=== PATIENT | female | born 1940 | race Caucasian/White ===

== ENCOUNTER 2020-11-13 07:43 | Day surgery (SDC) | payer OTHER, SELFPAY ==
[2020-11-08 15:21] VITALS: BMI 32.5
--- NOTE | 2020-11-10 13:01 | MHC.SHP ---
Pre-Procedural Eval Section A The patient is an INPATIENT: No The History & Physical has been completed within 30 days and I have reviewed it.: Yes Section B Chief Complaint: Cataract Right Eye Allergies: Allergies Allergy/AdvReac Type Severity Reaction Status Date / Time aspirin Allergy Unknown Verified 11/08/20 09:26 bee pollen Allergy Unknown Verified 11/08/20 09:26 beeswax Allergy Unknown Verified 11/08/20 09:26 Chocolate Allergy Unknown Verified 11/08/20 09:26 Penicillins Allergy Unknown Verified 11/08/20 09:26 Plan Diagnosis/Plan: Unchanged I have reviewed the history and physical and performed a pertinent physical examination on my patient. No changes have occurred unless specified.
[2020-11-13 08:44] VITALS: BP 124/48; PULSE 52; RESP 18; TEMP 36.2; O2SAT 93
[2020-11-13] MEDS: Lactated Ringers 500 ML 50 ML IV (08:49)
[2020-11-13] MEDS: Tetracaine HCl/PF 0.5% Oph Sol 4 ML DROPS 1 DROP EYE-RIGHT (08:49)
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
[2020-11-13] MEDS: Tropicamide 1 % Ophth Sol 3 ML BTL 1 DROP EYE-RIGHT ×3 (08:50→09:02)
[2020-11-13] MEDS: Phenylephrine HCL 2.5% Oph SoL 2 ML BOTTLE 1 DROP EYE-RIGHT ×3 (08:52→09:06)
[2020-11-13 09:09] LABS: Glucose, Whole Blood 109 mg/dL (60-115)
--- NOTE | 2020-11-13 09:50 | HO.PNOPHT ---
Ophthalmology Procedure Procedure Date of Service: 11/13/20 Ophthalmology Viscoelastic: Shira Bookert Dual Pack Pro Ophthalmology Lenses: TECDRU [id number] (12) Procedure Notes: PREOPERATIVE DIAGNOSIS: Decreased visual acuity right eye secondary to cataract POSTOPERATIVE DIAGNOSIS: Same PROCEDURE: Right cataract extraction with intraocular lens insertion SURGEON: Dharmesh Mejia M.D. ANESTHESIA: Topical/MAC ESTIMATED BLOOD LOSS: None COMPLICATIONS: None After obtaining informed consent, the patient was brought to the operating room suite and placed in the supine position. After adequate sedation per anesthesia, topical drops of Tetracaine were given to the right eye. The eye was then prepped and draped in the usual sterile fashion. The operating room microscope was then positioned over the operative eye and a lid speculum placed. A paracentesis was created. Viscoelastic was then instilled into the anterior chamber. A three plane incision was then created temporally, utilizing a 2.85 mm keratome. Capsulotomy forceps were then utilized to create a circular tear capsulotomy. Hydrodissection and hydrodelineation were carried out until adequate mobilization of the nucleus occurred. Phacoemulsification was then utilized to remove the dense central nucleus followed by removal of the cortical material utilizing the automated aspiration irrigation unit. Viscoelastic was instilled into the posterior capsular bag followed by placement of a posterior chamber intraocular lens without difficulty. The residual Viscoelastic was then removed utilizing the automated IA machine. The wound was checked and found to be watertight. The patient tolerated the procedure well and the lid speculum was removed. Intracameral injection of Vigamox 0.1 mL followed by a subtenon injection of Kenalog-40 0.2 mL were administered. The patient will be seen in the a.m.
[2020-11-13 09:56] VITALS: BP 122/42; PULSE 49; RESP 20; TEMP 36.4; O2SAT 95
== END 2020-11-13 10:15 | disposition home or self-care (01) ==
PROVIDERS: PCP Internal Medicine Rheumatology; Visit Provider Ophthalmology
PROC: (CPT 66985; principal; 2020-11-13 09:30)
DX: H25.11 Age-related nuclear cataract, right eye (principal); H52.4 Presbyopia; I10 Essential (primary) hypertension; E11.311 Type 2 diabetes mellitus with unspecified diabetic retinopathy with macular edema; E11.51 Type 2 diabetes mellitus with diabetic peripheral angiopathy without gangrene; I69.354 Hemiplegia and hemiparesis following cerebral infarction affecting left non-dominant side; J30.9 Allergic rhinitis, unspecified; G30.9 Alzheimer's disease, unspecified; F02.80 Dementia in other diseases classified elsewhere, unspecified severity, without behavioral disturbance, psychotic disturbance, mood disturbance, and anxiety; Z79.4 Long term (current) use of insulin; Z79.899 Other long term (current) drug therapy; Z79.51 Long term (current) use of inhaled steroids
CPT/HCPCS: 66984; 82947; J2250; J3010; J3300; V2632

== ENCOUNTER 2020-11-27 09:03 | Day surgery (SDC) | payer OTHER, SELFPAY ==
[2020-11-08 16:24] VITALS: BMI 32.5
--- NOTE | 2020-11-22 16:41 | MHC.SHP ---
Pre-Procedural Eval Section A The patient is an INPATIENT: No The History & Physical has been completed within 30 days and I have reviewed it.: Yes Section B Chief Complaint: Cataract Left Eye Allergies: Allergies Allergy/AdvReac Type Severity Reaction Status Date / Time aspirin Allergy Unknown Verified 11/08/20 09:26 bee pollen Allergy Unknown Verified 11/08/20 09:26 beeswax Allergy Unknown Verified 11/08/20 09:26 Chocolate Allergy Unknown Verified 11/08/20 09:26 Penicillins Allergy Unknown Verified 11/08/20 09:26 Plan Diagnosis/Plan: Unchanged I have reviewed the history and physical and performed a pertinent physical examination on my patient. No changes have occurred unless specified.
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
[2020-11-27 09:53] LABS: Glucose, Whole Blood 132 mg/dL (60-115)
[2020-11-27 10:24] VITALS: BP 132/64; PULSE 47; RESP 16; TEMP 36.2; O2SAT 93
[2020-11-27] MEDS: Lactated Ringers 500 ML 50 ML IV (10:36)
[2020-11-27] MEDS: Tetracaine HCl/PF 0.5% Oph Sol 4 ML DROPS 1 DROP EYE-LEFT (10:38)
[2020-11-27] MEDS: Tropicamide 1 % Ophth Sol 3 ML BTL 1 DROP EYE-LEFT ×3 (10:41→10:47)
[2020-11-27] MEDS: Phenylephrine HCL 2.5% Oph SoL 2 ML BOTTLE 1 DROP EYE-LEFT ×3 (10:43→10:49)
--- NOTE | 2020-11-27 11:24 | HO.PNOPHT ---
Ophthalmology Procedure Procedure Date of Service: 11/27/20 Ophthalmology Viscoelastic: Healon Duet Dual Pack Pro Ophthalmology Lenses: TECNIS [id number] (17.5) Procedure Notes: PREOPERATIVE DIAGNOSIS: Decreased visual acuity left eye secondary to cataract POSTOPERATIVE DIAGNOSIS: Same PROCEDURE: Left cataract extraction with intraocular lens insertion SURGEON: Dharmesh Mejia M.D. ANESTHESIA: Topical/MAC ESTIMATED BLOOD LOSS: None COMPLICATIONS: None After obtaining informed consent, the patient was brought to the operation room suite and placed in the supine position. After adequate sedation per anesthesia, topical drops of Tetracaine were given to the left eye. The eye was then prepped and draped in the usual sterile fashion. The operating room microscope was then positioned over the operative eye and a lid speculum placed. A paracentesis was created. Viscoelastic was then instilled into the anterior chamber. A three plane incision was then created temporally, utilizing a 2.85 mm keratome. Capsulotomy forceps were then utilized to create a circular tear capsulotomy. Hydrodissection and hydrodelineation were carried out until adequate mobilization of the nucleus occurred. Phacoemulsification was then utilized to remove the dense central nucleus followed by removal of the cortical material utilizing the automated aspiration irrigation unit. Viscoat elastic was instilled into the posterior capsular bag followed by placement of a posterior chamber intraocular lens without difficulty. The residual Viscoat elastic was then removed utilizing the automated IA machine. The wound was check and found to be watertight. The patient tolerated the procedure well and the lid speculum was removed. Intracameral injection of Vigamox 0.1 mL followed by a subtenon injection of Kenalog-40 0.2 mL were administered. The patient will be seen in the a.m.
[2020-11-27 11:33] VITALS: BP 143/40; PULSE 51; RESP 16; TEMP 36.3; O2SAT 94
== END 2020-11-27 12:13 | disposition home or self-care (01) ==
PROVIDERS: PCP Internal Medicine Rheumatology; Visit Provider Ophthalmology
PROC: (CPT 66985; principal; 2020-11-27 11:20)
DX: H25.12 Age-related nuclear cataract, left eye (principal); H52.4 Presbyopia; I10 Essential (primary) hypertension; E11.9 Type 2 diabetes mellitus without complications; G30.9 Alzheimer's disease, unspecified; F02.80 Dementia in other diseases classified elsewhere, unspecified severity, without behavioral disturbance, psychotic disturbance, mood disturbance, and anxiety; Z79.899 Other long term (current) drug therapy; Z91.81 History of falling; Z99.3 Dependence on wheelchair; Z87.891 Personal history of nicotine dependence
CPT/HCPCS: 66984; 82947; J3010; J3300; V2632

== ENCOUNTER 2021-04-18 14:01 | Inpatient (IN) | payer OTHER, MEDICAID, SELFPAY ==
[2021-04-18] VITALS (11 sets, daily range): BP systolic 122–145; BP diastolic 24–53; PULSE 51–59; RESP 18–40; TEMP 36.9–37.9; O2SAT 96–100; BMI 33.3
--- NOTE | 2021-04-18 | ECG_ITS ---
Test Reason : ALTER MENTAL Blood Pressure : / mmHG Vent. Rate : 053 BPM Atrial Rate : 053 BPM P-R Int : 174 ms QRS Dur : 078 ms QT Int : 460 ms P-R-T Axes : 000 -16 -43 degrees QTc Int : 431 ms Sinus bradycardia with Premature atrial complexes Nonspecific ST and T wave abnormality Abnormal ECG No previous ECGs available Referred By: Generic ED Physician Electronically Signed By:LIDA PRATT MD
--- NOTE | ~2021-04-18 | XR_ITS ---
EXAMINATION: XR CHEST CLINICAL INFORMATION: Shortness of breath COMPARISON: None TECHNIQUE: Frontal view of the chest was obtained. FINDINGS: The cardiac silhouette is normal. There is mild diffuse bronchial wall thickening and increased pulmonary vascularity. There are no areas of consolidation. There are no pleural effusions or pneumothoraces. The bones and soft tissues are unremarkable for the patient's age. XR/XR chest 1V IMPRESSION: Mild pulmonary edema.
--- NOTE | ~2021-04-18 | XR_ITS ---
EXAMINATION: XR CHEST CLINICAL INFORMATION: Tachypnea. COMPARISON: None TECHNIQUE: Frontal view of the chest was obtained. FINDINGS: The lungs are well-expanded with increased bilateral vascular markings slightly greater on the right side. There is patchy density in the right upper lobe likely infiltrate or atelectasis. Heart size is borderline normal. The pulmonary vascularity is normal. There is moderate spondylosis. XR/XR chest 1V IMPRESSION: Mild cardiomegaly. Right upper lobe patchy linear density at question infiltrate/atelectasis. There is increased parahilar vascular markings more so on the right and left suspicious for interstitial pneumonitis or vascular congestion.
--- NOTE | ~2021-04-18 | US_ITS ---
EXAMINATION: US VENOUS ULTRASOUND WITH DOPPLER LOWER EXTREMITY, BILATERAL CLINICAL INFORMATION: Shortness of breath. COMPARISON: None TECHNIQUE: Ultrasound of the deep veins is performed from the hip to the calf with compression sonography and color and pulse Doppler assessment. Spectral analysis with color-flow imaging is performed. FINDINGS: RIGHT: There is normal venous compression and respiratory variation and augmented flow. The visualized common femoral vein, superficial femoral vein, profunda femoral vein, popliteal vein, and the trifurcation region shows no evidence of deep venous thrombosis. There is no significant popliteal fossa cyst. LEFT: There is normal venous compression and respiratory variation and augmented flow. The visualized common femoral vein, superficial femoral vein, profunda femoral vein, popliteal vein, and the trifurcation region shows no evidence of deep venous thrombosis. There is no significant popliteal fossa cyst. If the patient's symptoms persist, followup ultrasound in 5 days 7 days might be of value to exclude proximal propagation from a non-visualized calf vein. US/US venous duplex LE BI IMPRESSION: No DVT demonstrated in the bilateral lower extremities.
--- NOTE | ~2021-04-18 | CT_ITS ---
EXAMINATION: CT ANGIOGRAM OF THE CHEST WITH AND WITHOUT CONTRAST (CT PULMONARY ANGIOGRAM FOR PE) CLINICAL INFORMATION: Reason for Exam SOB, hypoxic, elevated dimer, recent abd surgery COMPARISON: None TECHNIQUE: Prior to contrast administration, noncontrast localization images were obtained. Subsequently, multidetector volumetric imaging was performed from the thoracic inlet to below the diaphragms following the administration of 80 mL Omnipaque 350 intravenous contrast. No contrast reaction reported Sagittal, coronal, and MIP oblique sagittal reformatted images were obtained on the CT workstation, uploaded to PACS, and reviewed. This CT examination was performed using dose optimization techniques as appropriate, variously including the following: *Automated exposure control *Adjustment of mA and/or kV according to patient size (this includes techniques or standardized protocols for targeted exams where dose is matched to indication/reason for exam; i.e. extremities or head) *Use of iterative reconstruction technique Total exam dose-length product 538 mGy-cm FINDINGS: QUALITY OF STUDY/CONTRAST BOLUS: Satisfactory. PULMONARY ARTERIES: This exam is extremely limited from patient motion. There is no evidence of a central embolism. Peripheral embolism cannot be excluded due to significant motion artifact. THORACIC AORTA: No aneurysm or dissection. LUNG: Right lung; No significant effusion. Right upper lung atelectasis is noted. Follow-up be recommended as an underlying lesion cannot be excluded. Some of these areas are thickened. Left lung; Left basilar atelectasis. No significant infiltrate or effusion. PLEURA: No pleural effusion or pneumothorax. MEDIASTINUM: No bulky adenopathy. No evidence of septal bowing or right heart strain. CHEST WALL/AXILLA: No axillary or internal mammary lymphadenopathy. OSSEOUS STRUCTURES: No acute or suspicious osseous abnormality. UPPER ABDOMEN: Unremarkable. No reflux of contrast into the hepatic veins to suggest elevated right heart pressures. CT/CT angio chest PE protocol IMPRESSION: This exam is largely nondiagnostic due to patient motion. There is not felt to be a central embolism in the main right or left pulmonary arteries but a more peripheral embolism distal to the right or left main pulmonary artery cannot be excluded. Correlation is recommended clinically. Consider peripheral venous Dopplers to further evaluate. Exam demonstrates thickened atelectasis versus scarring in the upper lung zone on the right. Follow-up would be recommended as an underlying lesion cannot be excluded. Otherwise there is no significant area of infiltrate or effusion. Probable basilar atelectasis. VTE: Nondiagnostic
--- NOTE | ~2021-04-18 | CT_ITS ---
EXAMINATION: CT ABDOMEN AND PELVIS WITHOUT CONTRAST CLINICAL INFORMATION: Recent hemicolectomy. Tender and distended. COMPARISON: None TECHNIQUE: Multidetector volumetric imaging was performed from the superior aspect of the liver through the pubic symphysis. Sagittal and coronal reformatted images were obtained on the technologist's workstation. This CT examination was performed using dose optimization techniques as appropriate, variously including the following: *Automated exposure control *Adjustment of mA and/or kV according to patient size (this includes techniques or standardized protocols for targeted exams where dose is matched to indication/reason for exam; i.e. extremities or head) *Use of iterative reconstruction technique DLP: 1182 mGy-cm FINDINGS: There is breathing artifact present which degrades study. LUNG BASES: The heart is enlarged. Coronary artery calcification is seen. Aortic valve calcification is present. No significant parenchymal disease is seen. LIVER, GALLBLADDER, AND BILIARY TREE: The liver is normal in size, shape, and attenuation. No focal hepatic lesion or biliary ductal dilatation is present. Status post cholecystectomy. PANCREAS: Unremarkable. SPLEEN: Unremarkable. ADRENAL GLANDS: Unremarkable. KIDNEYS AND URETERS: Due to motion artifact I cannot comment on whether there may be small calculi present or hydronephrosis. No ureteral dilatation is seen. BLADDER: Unremarkable. GASTROINTESTINAL TRACT: No dilated loops of large or small bowel are evident. No free intra-abdominal air. No free intra-abdominal fluid. There is diverticulosis of the sigmoid colon without evidence of acute diverticulitis. Status post right hemicolectomy. There is a region of hazy density seen about the right anterior abdomen near region of large amount of motion artifact. I cannot tell whether this may be postoperative. No definite drainable abscess is seen. ABDOMINAL WALL: No significant hernia is appreciated. There is some stranding within the subcutaneous fat anteriorly most likely postoperative in nature. No abnormal collection this location. LYMPH NODES: No lymphadenopathy appreciated. VASCULAR: There is prominent calcification of the aortoiliac system. Ostial plaque is seen origins of the celiac and superior mesenteric arteries as well as the renal arteries and I cannot tell whether these may be hemodynamically significant or not but I am suspicious that they are. No abdominal aortic aneurysm. PELVIC VISCERA: Unremarkable. OSSEOUS STRUCTURES: No acute destructive bony lesions are appreciated. Multilevel degenerative disease is seen as well as scoliosis of the lumbar spine convex right. CT/CT abdomen pelvis wo con IMPRESSION: Limited study related to motion artifact. No evidence of ileus or obstruction. No definite evidence of obstructive uropathy with ureters not being dilated. Prominent vascular calcifications. Hemodynamically significant stenoses not excluded.
--- NOTE | ~2021-04-18 | CT_ITS ---
EXAMINATION: CT HEAD WITHOUT CONTRAST CLINICAL INFORMATION: Altered mental status COMPARISON: None. TECHNIQUE: Multidetector CT examination of the head is performed without contrast. This CT examination was performed using dose optimization techniques as appropriate, variously including the following: *Automated exposure control *Adjustment of mA and/or kV according to patient size (this includes techniques or standardized protocols for targeted exams where dose is matched to indication/reason for exam; i.e. extremities or head) *Use of iterative reconstruction technique DLP: 721 mGy-cm FINDINGS: There is no evidence of a recent intracranial hemorrhage or extra-axial collection. The midline structures are nondisplaced. The ventricles, cisterns, and sulci are within normal limits. There is no evidence of an intra-axial mass. There are no suspicious focal areas of abnormal brain attenuation. The bess-white interface is within normal limits. There is no evidence of acute territorial infarct. Somewhat wedge-shaped area of low attenuation along the undersurface of the left frontal lobe extending to just above the orbit without mass effect. The paranasal sinuses and mastoids are within normal limits. CT/CT head/brain wo con IMPRESSION: 1. There is no evidence of a recent intracranial hemorrhage. 2. No acute infarct. 3. Low attenuating area along the undersurface of left frontal lobe. No evidence of mass effect. This is a location which can reflect posttraumatic encephalomalacia.
--- NOTE | ~2021-04-18 | CT_ITS ---
EXAMINATION: CT CHEST WITH CONTRAST CLINICAL INFORMATION: Elevated breathing pressure of 40 and coughing blood COMPARISON: CT chest April 18, 2021. Chest x-ray April 20, 2021 TECHNIQUE: Multidetector volumetric CT imaging of the chest was obtained after the administration of 85 mL of Omnipaque 350 intravenous contrast without immediate adverse reactions. Axial MIP volume rendering provided. Sagittal and coronal reformatted images were obtained. This CT examination was performed using dose optimization techniques as appropriate, variously including the following: *Automated exposure control *Adjustment of mA and/or kV according to patient size (this includes techniques or standardized protocols for targeted exams where dose is matched to indication/reason for exam; i.e. extremities or head) *Use of iterative reconstruction technique DLP: 618 mGy-cm FINDINGS: There is breathing motion which severely limits study. In addition imaging was performed at the patient's arms at the side which causes artifacts. LUNGS: No focal dense consolidation. Chronic linear scarring at the right upper lobe. Central bronchial airways appear open. MEDIASTINUM: The heart size is normal. No pericardial effusion. Small volume of coronary artery calcifications. Moderate volume of calcifications of thoracic aorta. There is no aneurysm or dissection of aorta. No mediastinal mass or significant lymphadenopathy. Thyroid is unremarkable. PLEURA: Small volume bilateral dependent pleural effusions. AXILLA: No lymphadenopathy. UPPER ABDOMEN: Unremarkable OSSEOUS STRUCTURES: Multilevel degenerative spondylosis of dorsal spine. CT/CT chest w con IMPRESSION: 1. Exam limited by motion artifact and artifact from imaging with patient's arms at the side. 2. No gross acute abnormality of the lungs. There are small bilateral pleural effusions.
[2021-04-18 14:28] LABS: Basophils Percent Auto 0.2 % (0-2); Hematocrit 27.6 % (37-47); Hemoglobin 8.8 g/dl (12.0-16.0); Imm Gran Abs Auto 0.04 X10*3/uL (0.00-0.03); Imm Gran Pct Auto 0.4 % (0.0-0.4); Lymphocytes Absolute Auto 2.1 X10*3/uL (1.2-4.9); Lymphocytes Percent Auto 20.2 % (20-40); MANUAL DIFF FLAG NO; Mean Corpuscular HGB Conc 31.9 g/dl (31.0-35.0); Mean Corpuscular Hemoglobin 30.6 pg (27.0-33.0); Mean Corpuscular Volume 95.8 fL (80-98); Mean Platelet Volume 9.8 fL (9.4-12.3); Monocytes Absolute Auto 0.6 X10*3/uL (0.1-1.2); Monocytes Percent Auto 6.3 % (2-11); Neutrophils Absolute Auto 7.4 X10*3/uL (2.0-8.3); Neutrophils Percent Auto 72.9 % (45-73); Platelet Count 286 X10*3/uL (160-400); Red Blood Count 2.88 X10*6/uL (4.20-5.50); Red Cell Distribution Width 14.1 % (11.0-16.0); White Blood Count 10.2 X10*3/uL (4.8-10.8)
[2021-04-18 14:51] LABS: Anion Gap 20 (12-20); Blood Urea Nitrogen 15 mg/dL (9-16); Calcium 9.6 mg/dL (8.4-10.2); Chloride 101 mmol/L (96-108); Creatinine Clr Calc Pharmacy 44.2; Estimated Glomerular Filt Rate 48; Glucose Random 148 mg/dL (60-115); Potassium 4.5 mmol/L (3.3-5.1); Sodium 137 mmol/L (135-145)
[2021-04-18 14:57] LABS: Lactic Acid 4.3 mmol/L (0.5-2.0)
[2021-04-18 14:58] LABS: Carbon Dioxide 21 mmol/L (22-29)
[2021-04-18] MEDS: 0.9 % Sodium Chloride 1,000 ML 999 ML IVCONT ×2 (15:12→16:17)
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
[2021-04-18 16:26] LABS: Reflex Lactate? Lactic Acid Added
[2021-04-18 16:30] LABS: Glucose Urine UA NEG (NEG); Leukocyte Esterase Urine 3+ (NEG); Nitrite Urine POS (NEG); UACC Culture Trigger YES; Urine Blood 1+ (NEG); Urine Ketones NEG (NEG); Urine Protein 1+ MG/DL (NEG-TRACE)
[2021-04-18 16:33] LABS: Appearance Urine CLOUDY; Color Urine YELLOW
[2021-04-18 16:42] LABS: Bacteria Urine 2+ /LPF; Squamous Epithelial Cell Urine 2+ /LPF; WBC Urine 50-75 /HPF (0-4)
[2021-04-18 17:01] LABS: ABG Base Excess 1.2 mmol/L; ABG HCO3 21 mmol/L (22-26); ABG pCO2 21 mmHg (32-45); ABG pCO2 TC 22 mmHg (32-45); ABG pH TC 7.59 (7.35-7.45); ABG pO2 79 mmHg (83-108); ABG pO2 TC 81 (83-108)
[2021-04-18 17:09] LABS: Amphetamine Screen Urine Not Detected (Not Detect); Barbiturates, Urine Not Detected (Not Detect); Benzodiazepines Screen Urine Not Detected (Not Detect); Cannabinoid Screen Urine Not Detected (Not Detect); Cocaine Screen Urine Not Detected (Not Detect); Fentanyl, urine Not Detected (Not Detect); Opiate Screen Urine Not Detected (Not Detect); Phencyclidine Screen Urine Not Detected (Not Detect)
--- NOTE | 2021-04-18 17:23 | PC.NURSE ---
patients oxygen saturation 97-100% on room air, ABG showing the patient is oxygenating well
[2021-04-18] MEDS: levoFLOXacin/D5W 500 MG/100 ML PIGGYBACK 100 MG IV (17:41)
--- NOTE | 2021-04-18 17:55 | PC.NURSE ---
patients daughter at bedside very anxious regarding the patients care- this RN and voice intercept technician at bedside drawing blood work and administering an antibiotic for the patient via IV pump. patients daughter very concerned regarding the patients respiratory status and rate of respirations. Dr. giordano and this RN assured her that the patient was oxygenating well and that she did not require oxygen at this time but that IVP morphine can be administered for respiratory comfort and ease of breathing as well as pain control. Patients daughter very upset at the idea of morphine being given to her mother and became emotional stating that her mother would not be taking the morphine and that all medications and interventions be screened through her prior to administration or enactment of the intervention. provider made aware.
[2021-04-18 18:01] LABS: Alanine Aminotransferase 16 U/L (0-31); Albumin Level 3.3 g/dL (3.5-5.0); Alkaline Phosphatase 187 U/L (39-117); Aspartate Amino Transferase 13 U/L (5-31); Bilirubin Direct 0.3 mg/dL (0.0-0.5); Bilirubin Total 0.8 mg/dL (0.0-1.0)
[2021-04-18 18:05] LABS: Ammonia 23 umol/L (13-55)
[2021-04-18 18:22] LABS: ~Lactic Acid-LAB USE ONLY 2.1 mmol/L (0.5-2.0)
[2021-04-18 18:31] LABS: Influenza A PCR NEGATIVE (Negative); Influenza B PCR NEGATIVE (Negative); Resp Syncy Virus RNA Qual PCR NEGATIVE (Negative); SARS COV2 PCR INHOUSE NEGATIVE (Negative)
--- NOTE | 2021-04-18 19:07 | PHA.MEDREC ---
Pharmacy Consult ? Medication Reconciliation Pharmacy has completed the medication reconciliation.
[2021-04-18 19:31] LABS: Reflex Lactate? Lactic Acid Added
[2021-04-18] MEDS: Morphine Sulfate 2 MG/ML CARTRIDGE 1 MG IVPUSH ×2 (19:39→21:00)
[2021-04-18 19:42] LABS: Lactic Acid 2.1 mmol/L (0.5-2.0)
[2021-04-18 19:43] LABS: B Type Natriuretic Peptide 299 pg/mL (<100)
[2021-04-18 19:48] LABS: Reflex Lactate? 2 Y
[2021-04-18 19:55] LABS: Troponin-I High Sensitivity 17.6 ng/L (<3.5-17.0)
--- NOTE | 2021-04-18 20:16 | PC.NURSE ---
Pt with increases RR and work of breathing. Pt's daughter at bedside, requesting pain control. Pt medicated with 1mg of morphine IVP as ordered by Dr Baptiste. Pt's labs (lactic and Ddimer) obtained and sent to lab for processing. Pt continues with increased RR and work of breathing. Pt's daughter requesting Dr Baptiste to bedside and also requesting additional pain control. Dr Baptiste made aware of both requests. Pt stretcher in lowest locked position, rails raised, call ledesma within reach, family to remain at bedside at this time.
[2021-04-18 20:26] LABS: D Dimer 824 NG/ML
[2021-04-18 20:33] LABS: ~Lactic Acid-LAB USE ONLY 1.5 mmol/L (0.5-2.0)
--- NOTE | 2021-04-18 21:15 | PC.NURSE ---
Pt found incontinent of urine. Pt provided inc care. Pt tolerated inc care well. Pt family exited room to meet their own comfort needs, aware and agreeable to plan for CTA of chest. Pt remains in low locked position on stretcher, rails raised, call ledesma within reach. Pt wth red fall prevention socks on, red fall alert wrist band and red star posted outside of room.
[2021-04-18 21:30] LABS: ABG Refer to POC result
--- NOTE | 2021-04-18 22:11 | PC.NURSE ---
Pt transported on environmental monitoring specialist by this rn to CT, returned to room without incidence. Pt tolerated CT well. Pt family in room upon return to ED room 5. Pt reconnected to main O2 from stretcher O2 tank, reconnected to environmental monitoring specialist. VS assessed and documented. When asked if pt is comfortable, she state yes. Stretcher in low locked position, rails raised, call ledesma within reach, family at bedside, awaiting CT results.
[2021-04-18] MEDS: iohexoL 350 MG/ML 100 ML INFUS..BTL IV (22:18)
--- NOTE | 2021-04-18 22:22 | ECG_ITS ---
Test Reason : ALT MENTAL Blood Pressure : / mmHG Vent. Rate : 056 BPM Atrial Rate : 056 BPM P-R Int : 158 ms QRS Dur : 084 ms QT Int : 508 ms P-R-T Axes : 000 -11 006 degrees QTc Int : 490 ms Sinus bradycardia with Premature supraventricular complexes Nonspecific ST abnormality Abnormal ECG When compared with ECG of 18-APR-2021 14:24, Nonspecific T wave abnormality has replaced inverted T waves in Inferior leads QT has lengthened Referred By: Ju Penny Electronically Signed By:LIDA PRATT MD
--- NOTE | 2021-04-18 22:26 | PC.NURSE ---
Family requesting additional pain control. Dr Penny made aware and reminded of pt's bradycardia and tachypnea. Per Zohaib, repeat EKG and morphine to be ordered.
[2021-04-18 22:59] LABS: Glucose, Whole Blood 121 mg/dL (60-115)
[2021-04-18] MEDS: Morphine Sulfate 4 MG/ML CARTRIDGE IVPUSH (23:01)
[2021-04-18] MEDS: 0.9 % Sodium Chloride 1,000 ML 100 ML IVCONT (23:05)
[2021-04-18] MEDS: cefTRIAXone sodium 1 GM in 0.9 % Sodium Chloride 50 ML IV (23:05)
[2021-04-18] MEDS: Furosemide 40 MG/4 ML VIAL IVPUSH (23:05)
[2021-04-18] MEDS: Heparin Sodium,Porcine 5,000 UNIT/ML VIAL 5000 UNIT SUBCUT (23:05)
[2021-04-19] VITALS (11 sets, daily range): BP systolic 108–164; BP diastolic 34–77; PULSE 52–59; RESP 16–42; TEMP 36.1–37.7; O2SAT 96–99; BMI 32.4
--- NOTE | 2021-04-19 02:19 | PC.NURSE ---
Pt assessed for incontinence care needs. Pt dry, does not require inc care at this time. Pt stretcher in lowest locked position, rails raised, call ledesma within reach.
[2021-04-19] MEDS: Morphine Sulfate 4 MG/ML CARTRIDGE IVPUSH ×2 (03:28→21:43)
--- NOTE | 2021-04-19 03:29 | PC.NURSE ---
Pt found to have increased work of breathing. This RN noticed pt was incontinent of urine, inc care provided, pt's vitals reassessed. While receiving inc care, pt awoke, and when this RN asked are you in pain? pt states yes. Pt medicated for pain per MAR. Pt repositioned to R side. Pt stretcher low locked, rails raised, call ledesma within reach.
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
[2021-04-19 06:54] LABS: MANUAL DIFF FLAG NO
--- NOTE | 2021-04-19 07:00 | CA_ITS ---
Transthoracic Echocardiogram Patient (Last, First, Middle): Clau Rm, Gender: Female Date of : 1940 Age: 80 Procedure Date: 04/19/2021 Procedure Type: Transthoracic Echocardiogram Location: [facility] [place] Height: 165.1 cm Weight: 88.45 kg BSA: 1.96 m2 Heart Rate: bpm BP: 124 / 55 mmHg Behaviorist: Catina MD: Ju Penny MD Recruiting Manager: Jacinto Henning MD Symptoms: chf Study Quality: Fair ECG Rhythm: Sinus Conclusions: - 1. Normal LV systolic function with impaired relaxation filling pattern with elevated filling pressures 2. Mildly dilated left atrium 3. Mild aortic stenosis and mild mitral regurgitation 4. Normal RV systolic pressure 5. No pericardial effusion Findings Left Ventricle Normal left ventricular size, thickness, and systolic function. The visually estimated ejection fraction is between 60-65%. Spectral Doppler is indicative of an impaired relaxation filling pattern. Elevated filling pressures. E/E prime ratio is >15, consistent with elevated filling pressures. Right Ventricle Normal right ventricular cavity size and systolic function. Atria The left atrium is mildly dilated. There is no evidence of interatrial shunt. The right atrium is likely dilated. Aortic Valve The aortic valve was not well visualized. There is mild aortic valve stenosis. The peak aortic gradient is 31 mmHg.The mean gradient is 14 mmHg. The aortic valve area is 1.54 cm2. There is no aortic valve regurgitation. Mitral Valve There is mild anterior and posterior mitral leaflet thickening. There is mild mitral valve regurgitation. There is no mitral valve stenosis. Pulmonic Valve The pulmonic valve was not well visualized. Tricuspid Valve Likely normal tricuspid valve structure and function. There is mild tricuspid valve regurgitation. The right ventricular systolic pressure is normal. The right ventricular systolic pressure is 29 mmHg. Normal right atrial pressure. Great Vessels All visible segments of the aorta are normal in size. The pulmonary artery was not well visualized. Venous The inferior vena cava was not well visualized. Pericardium/Pleural There is no evidence of pericardial effusion. Prior Study Comparison No prior study available for comparison. Measurements 2D Linear Measurements RVIDd: 3.93 RVIDd Index: 2.01 IVSd: 0.78 0.6-0.9/0.6-1.0 cm LVIDd: 5.17 3.9-5.3/4.2-5.9 cm LVIDd Index: 2.64 2.4-3.2/2.2-3.1 cm/m2 LVIDs: 3.40 2.0-3.6 cm LVPWd: 1.00 0.7-1.1 cm Ao Root: 2.90 2.1-3.5 cm LA Diam: 4.20 2.7-3.8/3.0-4.0 cm LAIDs Index: 2.14 1.5-2.3 cm/m2 LV Mass: 264.70 67-162/88-224 g LV Mass Index: 135.05 43-95/49-115 g/m2 LVOT Diam: 2.10 3.0+(-)1.3 cm 2D Systolic Function EF 4C: 72.70 >55% EF 2C: 49.50 >55% EF BiP: 64.00 >55% Mitral Valve MV Pk E: 0.99 MV PK A: 0.94 MV Decel Time: 318.00 E/A: 1.10 E'Lateral: 8.59 E'Medial: 5.00 E/E' Med: 19.70 E/E' Lat: 11.50 Aortic Valve AoV Pk Caio: 2.78 AoV Mn Caio: 1.70 AoV VTI: 0.63 AoV Pk Grad: 31.00 Aov Mn Grad: 14.00 KAITLYN Cont.VTI: 1.54 LVOT LVOT Pk Caio: 0.99 LVOT Mn Caio: 0.73 LVOT VTI: 0.28 LVOT Pk Grad: 4.00 LVOT Mn Grad: 2.00 LVOT Diam: 2.10 LVOT Area: 3.46 Diastolic Function MV Pk E: 0.99 MV Pk A: 0.94 E/A: 1.10 E'Medial: 5.00 E/E' Med: 19.70 E' Laterial: 8.59 E/E' Lat: 11.50 Right Ventricle TAPSE (mm): 18.00 TVS' Caio: 11.20 Tricuspid Valve TR Pk Caio: 2.28 TR Pk Grad: 21.00 RA Press: 5.50 RVSP: 29.00 Great Vessels Aorta Ao Root-2D: 2.90 2.0-3.7 cm Ao Asc: 2.40 2.1-3.4 cm Ao Arch: 3.30 Updated in Other Vendor System with Status of Final Jacinto Henning MD electronically signed on 04/19/2021 12:36:54 PM with status of Final
[2021-04-19 07:07] LABS: Basophils Percent Auto 0.2 % (0-2); Hematocrit 26.7 % (37-47); Hemoglobin 8.2 g/dl (12.0-16.0); Imm Gran Abs Auto 0.04 X10*3/uL (0.00-0.03); Imm Gran Pct Auto 0.4 % (0.0-0.4); Lymphocytes Absolute Auto 1.9 X10*3/uL (1.2-4.9); Lymphocytes Percent Auto 20.2 % (20-40); Mean Corpuscular HGB Conc 30.7 g/dl (31.0-35.0); Mean Corpuscular Hemoglobin 30.9 pg (27.0-33.0); Mean Platelet Volume 10.1 fL (9.4-12.3); Monocytes Absolute Auto 0.7 X10*3/uL (0.1-1.2); Monocytes Percent Auto 7.7 % (2-11); Neutrophils Absolute Auto 6.9 X10*3/uL (2.0-8.3); Neutrophils Percent Auto 71.5 % (45-73); Platelet Count 276 X10*3/uL (160-400); Red Blood Count 2.65 X10*6/uL (4.20-5.50); Red Cell Distribution Width 14.3 % (11.0-16.0); White Blood Count 9.6 X10*3/uL (4.8-10.8)
--- NOTE | 2021-04-19 07:22 | HO.PM.IMPN ---
Subjective Subjective Date of Service: 04/19/21 Interval History: F/u on encephalopathy, UTI, remain consused, no respirtory distress Review of Systems Review of Systems: Yes Unobtainable due to mental status Physical Exam Vital Signs: Vital Signs: Last Vital Signs Temp 97.6 F 04/19/21 03:26 Pulse 52 04/19/21 06:27 Resp 22 H 04/19/21 06:27 BP 124/55 L 04/19/21 06:27 Pulse Ox 98 04/19/21 06:27 Body Mass Index 32.4 Const: Other: General: confused, no acute distress Resp: CTA bilateral CVS: S1,S2,RRR GI: +BS, NT, no distention Skin: No rash Neuro: motor grossly intact Psych: appropriate affect Objective Data Current Medications Generic Name Dose Route Start Last Admin Trade Name Freq PRN Reason Stop Dose Admin Acetaminophen 650 mg 04/18/21 22:25 Acetaminophen Supp 650 Mg Supp.Rect HI Q6H PRN Pain, Mild (Pain Scale 1-3) Clopidogrel Bisulfate 75 mg 04/19/21 09:00 Clopidogrel Bisulfate 75 Mg Tablet PO DAILY YRIS Furosemide 40 mg 04/18/21 22:25 04/18/21 23:05 Furosemide 40 Mg/4 Ml Vial IVPUSH 40 mg Q12H YRIS Administration Protocol Heparin Sodium (Porcine) 5,000 unit 04/18/21 23:00 04/18/21 23:05 Heparin Sodium,Porcine 5,000 Unit/Ml Vial SUBCUT 5,000 unit Q12H YRIS Administration Ceftriaxone Sodium 1 gm/ 50 mls @ 100 mls/hr 04/18/21 23:00 04/18/21 23:53 Sodium Chloride IV Infused Q24H YRIS Infusion Sodium Chloride 1,000 mls @ 100 mls/hr 04/18/21 22:25 04/18/21 23:05 Ns IVCONT 100 mls/hr .Q10H YRIS Administration Insulin Glargine 10 unit 04/19/21 21:00 Insulin Glargine,Hum.Rec.Anlog 100 Unit/Ml 10 Ml Vial SUBCUT BEDTIME YRIS Morphine Sulfate 4 mg 04/18/21 22:22 04/19/21 03:28 Morphine Sulfate 4 Mg/Ml Cartridge IVPUSH 4 mg Q4H PRN Administration Pain, Severe (Pain Scale 7-10) Protocol Ondansetron HCl 4 mg 04/18/21 22:25 Ondansetron Hcl 4 Mg/2 Ml Vial IVPUSH Q8H PRN Nausea and Vomiting Pharmacy Consult 1 each 04/18/21 18:26 Consult Rx Perform Med Rec MISCELLANE ONCE PRN Consult order Sodium Chloride 3 ml 04/19/21 00:00 04/19/21 00:15 0.9 % Sodium Chloride Flush 3 Ml Syringe IVFLUSH Not Given QSHIFT [facility] Labs CBC & Chem 7: 04/19/21 06:41 04/19/21 06:41 Labs: Laboratory Results - last 24 hr 04/18/21 04/18/21 04/18/21 14:23 14:23 14:23 MCV 95.8 MCH 30.6 MCHC 31.9 RDW 14.1 Plt Count 286 MPV 9.8 Immature Gran % (Auto) 0.4 Neut % (Auto) 72.9 Lymph % (Auto) 20.2 [place] % (Auto) 6.3 Eos % (Auto) 0.0 Baso % (Auto) 0.2 Lymph # (Auto) 2.1 [place] # (Auto) 0.6 Eos # (Auto) 0.0 Baso # (Auto) 0.0 Abs Immat Gran (auto) 0.04 H Absolute Neuts (auto) 7.4 Absolute Nucleated RBC 0.000 Nucleated RBC % (auto) 0.0 D-Dimer O2 Saturation ABG pH at Pt Temp ABG pH (Temp Correct) ABG pCO2 at Pt Temp ABG pCO2 (Temp Corrct ABG pO2 at Pt Temp ABG pO2 (Temp Correct ABG HCO3 ABG Base Excess (Actual) Anion Gap 20 Estim Creat Clear Calc 44.2 Estimated GFR 48 POC Glucose Random Glucose 148 H Lactic Acid 4.3 H* Lactic Acid Fup @ 2Hr Lactic Acid Fup @ 4Hr Calcium 9.6 Total Bilirubin Direct Bilirubin AST ALT Alkaline Phosphatase Ammonia Troponin I High Sens B-Natriuretic Peptide Total Protein Albumin Urine Color Urine Appearance Urine pH Ur Specific [place] Urine Protein Urine Glucose (UA) Urine Ketones Urine Blood Urine Nitrite Ur Leukocyte Esterase Urine RBC Urine WBC Ur Squamous Epith Cells Urine Bacteria Urine Opiates Screen Urine Fentanyl Screen Ur Barbiturates Screen Ur Phencyclidine Scrn Ur Amphetamines Screen U Benzodiazepines Scrn Urine Cocaine Screen U Marijuana (THC) Screen Coronavirus (PCR) Influenza Type A (PCR) Influenza Type B (PCR) RSV RNA Qual (PCR) 04/18/21 04/18/21 04/18/21 14:23 16:21 16:21 MCV MCH MCHC RDW Plt Count MPV Immature Gran % (Auto) Neut % (Auto) Lymph % (Auto) [place] % (Auto) Eos % (Auto) Baso % (Auto) Lymph # (Auto) [place] # (Auto) Eos # (Auto) Baso # (Auto) Abs Immat Gran (auto) Absolute Neuts (auto) Absolute Nucleated RBC Nucleated RBC % (auto) D-Dimer O2 Saturation ABG pH at Pt Temp ABG pH (Temp Correct) ABG pCO2 at Pt Temp ABG pCO2 (Temp Corrct ABG pO2 at Pt Temp ABG pO2 (Temp Correct ABG HCO3 ABG Base Excess (Actual) Anion Gap Estim Creat Clear Calc Estimated GFR POC Glucose Random Glucose Lactic Acid Lactic Acid Fup @ 2Hr Lactic Acid Fup @ 4Hr Calcium Total Bilirubin Direct Bilirubin AST ALT Alkaline Phosphatase Ammonia Troponin I High Sens 17.6 H* B-Natriuretic Peptide 299 H Total Protein Albumin Urine Color YELLOW Urine Appearance CLOUDY Urine pH 7.0 Ur Specific [place] 1.010 Urine Protein 1+ H Urine Glucose (UA) NEG Urine Ketones NEG Urine Blood 1+ H Urine Nitrite POS H Ur Leukocyte Esterase 3+ H Urine RBC 1-4 Urine WBC 50-75 H Ur Squamous Epith Cells 2+ Urine Bacteria 2+ Urine Opiates Screen Not Detected Urine Fentanyl Screen Not Detected Ur Barbiturates Screen Not Detected Ur Phencyclidine Scrn Not Detected Ur Amphetamines Screen Not Detected U Benzodiazepines Scrn Not Detected Urine Cocaine Screen Not Detected U Marijuana (THC) Screen Not Detected Coronavirus (PCR) Influenza Type A (PCR) Influenza Type B (PCR) RSV RNA Qual (PCR) 04/18/21 04/18/21 04/18/21 16:53 17:28 17:28 MCV MCH MCHC RDW Plt Count MPV Immature Gran % (Auto) Neut % (Auto) Lymph % (Auto) [place] % (Auto) Eos % (Auto) Baso % (Auto) Lymph # (Auto) [place] # (Auto) Eos # (Auto) Baso # (Auto) Abs Immat Gran (auto) Absolute Neuts (auto) Absolute Nucleated RBC Nucleated RBC % (auto) D-Dimer O2 Saturation 96.0 ABG pH at Pt Temp 7.60 H* ABG pH (Temp Correct) 7.59 H ABG pCO2 at Pt Temp 21 L ABG pCO2 (Temp Corrct 22 L ABG pO2 at Pt Temp 79 L ABG pO2 (Temp Correct 81 L ABG HCO3 21 L ABG Base Excess (Actual) 1.2 Anion Gap Estim Creat Clear Calc Estimated GFR POC Glucose Random Glucose Lactic Acid 2.1 H* Lactic Acid Fup @ 2Hr Lactic Acid Fup @ 4Hr Calcium Total Bilirubin 0.8 Direct Bilirubin 0.3 AST 13 ALT 16 Alkaline Phosphatase 187 H Ammonia Troponin I High Sens B-Natriuretic Peptide Total Protein 6.0 L Albumin 3.3 L Urine Color Urine Appearance Urine pH Ur Specific [place] Urine Protein Urine Glucose (UA) Urine Ketones Urine Blood Urine Nitrite Ur Leukocyte Esterase Urine RBC Urine WBC Ur Squamous Epith Cells Urine Bacteria Urine Opiates Screen Urine Fentanyl Screen Ur Barbiturates Screen Ur Phencyclidine Scrn Ur Amphetamines Screen U Benzodiazepines Scrn Urine Cocaine Screen U Marijuana (THC) Screen Coronavirus (PCR) Influenza Type A (PCR) Influenza Type B (PCR) RSV RNA Qual (PCR) 04/18/21 04/18/21 04/18/21 17:43 17:43 17:43 MCV MCH MCHC RDW Plt Count MPV Immature Gran % (Auto) Neut % (Auto) Lymph % (Auto) [place] % (Auto) Eos % (Auto) Baso % (Auto) Lymph # (Auto) [place] # (Auto) Eos # (Auto) Baso # (Auto) Abs Immat Gran (auto) Absolute Neuts (auto) Absolute Nucleated RBC Nucleated RBC % (auto) D-Dimer O2 Saturation ABG pH at Pt Temp ABG pH (Temp Correct) ABG pCO2 at Pt Temp ABG pCO2 (Temp Corrct ABG pO2 at Pt Temp ABG pO2 (Temp Correct ABG HCO3 ABG Base Excess (Actual) Anion Gap Estim Creat Clear Calc Estimated GFR POC Glucose Random Glucose Lactic Acid Lactic Acid Fup @ 2Hr 2.1 H* Lactic Acid Fup @ 4Hr Calcium Total Bilirubin Direct Bilirubin AST ALT Alkaline Phosphatase Ammonia 23 Troponin I High Sens B-Natriuretic Peptide Total Protein Albumin Urine Color Urine Appearance Urine pH Ur Specific [place] Urine Protein Urine Glucose (UA) Urine Ketones Urine Blood Urine Nitrite Ur Leukocyte Esterase Urine RBC Urine WBC Ur Squamous Epith Cells Urine Bacteria Urine Opiates Screen Urine Fentanyl Screen Ur Barbiturates Screen Ur Phencyclidine Scrn Ur Amphetamines Screen U Benzodiazepines Scrn Urine Cocaine Screen U Marijuana (THC) Screen Coronavirus (PCR) NEGATIVE Influenza Type A (PCR) NEGATIVE Influenza Type B (PCR) NEGATIVE RSV RNA Qual (PCR) NEGATIVE 04/18/21 04/18/21 04/18/21 20:11 20:11 22:54 MCV MCH MCHC RDW Plt Count MPV Immature Gran % (Auto) Neut % (Auto) Lymph % (Auto) [place] % (Auto) Eos % (Auto) Baso % (Auto) Lymph # (Auto) [place] # (Auto) Eos # (Auto) Baso # (Auto) Abs Immat Gran (auto) Absolute Neuts (auto) Absolute Nucleated RBC Nucleated RBC % (auto) D-Dimer 824 O2 Saturation ABG pH at Pt Temp ABG pH (Temp Correct) ABG pCO2 at Pt Temp ABG pCO2 (Temp Corrct ABG pO2 at Pt Temp ABG pO2 (Temp Correct ABG HCO3 ABG Base Excess (Actual) Anion Gap Estim Creat Clear Calc Estimated GFR POC Glucose 121 H Random Glucose Lactic Acid Lactic Acid Fup @ 2Hr Lactic Acid Fup @ 4Hr 1.5 Calcium Total Bilirubin Direct Bilirubin AST ALT Alkaline Phosphatase Ammonia Troponin I High Sens B-Natriuretic Peptide Total Protein Albumin Urine Color Urine Appearance Urine pH Ur Specific [place] Urine Protein Urine Glucose (UA) Urine Ketones Urine Blood Urine Nitrite Ur Leukocyte Esterase Urine RBC Urine WBC Ur Squamous Epith Cells Urine Bacteria Urine Opiates Screen Urine Fentanyl Screen Ur Barbiturates Screen Ur Phencyclidine Scrn Ur Amphetamines Screen U Benzodiazepines Scrn Urine Cocaine Screen U Marijuana (THC) Screen Coronavirus (PCR) Influenza Type A (PCR) Influenza Type B (PCR) RSV RNA Qual (PCR) 04/18/21 Unknown MCV MCH MCHC RDW Plt Count MPV Immature Gran % (Auto) Neut % (Auto) Lymph % (Auto) [place] % (Auto) Eos % (Auto) Baso % (Auto) Lymph # (Auto) [place] # (Auto) Eos # (Auto) Baso # (Auto) Abs Immat Gran (auto) Absolute Neuts (auto) Absolute Nucleated RBC Nucleated RBC % (auto) D-Dimer O2 Saturation ABG pH at Pt Temp ABG pH (Temp Correct) ABG pCO2 at Pt Temp ABG pCO2 (Temp Corrct ABG pO2 at Pt Temp ABG pO2 (Temp Correct ABG HCO3 ABG Base Excess (Actual) Anion Gap Estim Creat Clear Calc Estimated GFR POC Glucose Random Glucose Lactic Acid Lactic Acid Fup @ 2Hr Cancelled Lactic Acid Fup @ 4Hr Calcium Total Bilirubin Direct Bilirubin AST ALT Alkaline Phosphatase Ammonia Troponin I High Sens B-Natriuretic Peptide Total Protein Albumin Urine Color Urine Appearance Urine pH Ur Specific [place] Urine Protein Urine Glucose (UA) Urine Ketones Urine Blood Urine Nitrite Ur Leukocyte Esterase Urine RBC Urine WBC Ur Squamous Epith Cells Urine Bacteria Urine Opiates Screen Urine Fentanyl Screen Ur Barbiturates Screen Ur Phencyclidine Scrn Ur Amphetamines Screen U Benzodiazepines Scrn Urine Cocaine Screen U Marijuana (THC) Screen Coronavirus (PCR) Influenza Type A (PCR) Influenza Type B (PCR) RSV RNA Qual (PCR) Assessment and Plan (1) Encephalopathy: Status: Acute (2) Acute UTI: Status: Acute (3) CHF (congestive heart failure): Status: Acute Assessment and Plan: 80-year-old female with a recent hemicolectomy secondary to ischemic colitis, history of CVA, HTN, diabetes, who comes in from longterm with encephalopathy, UTI # Toxic encephalopathy d/t UTI, treate underlying UTI as below # UTI--continue Ceftriaxone D2, follow cultures # CHF-w/u with echo -cardiology consult -IV Lasix, monitor BMP # tachypnea--likely realte to all above, resolved. Monitor # diabetes--POCs, sliding scale # h/o CVA - continue Plavix # recent hemicolectomy--no new finding on CT All her medications are currently on hold given her confusion and her inability to take anything by mouth for concern of aspiration therefore Meds can be resume when patient is more alert and oriented.. Care discussed with daughter at bedside Quality Stroke Does the patient have a stroke diagnosis?: No VTE Prior VTE?: No VTE Risk Level:: Medical - moderate - high VTE Device Contraindication: Treatment Not Indicated VTE Drug Contraindication: N/A - Med Ordered
[2021-04-19 07:34] LABS: Anion Gap 15 (12-20); Blood Urea Nitrogen 14 mg/dL (9-16); Carbon Dioxide 23 mmol/L (22-29); Chloride 107 mmol/L (96-108); Creatinine Clr Calc Pharmacy 42.5; Estimated Glomerular Filt Rate 47; Glucose Random 202 mg/dL (60-115); Potassium 4.5 mmol/L (3.3-5.1); Sodium 140 mmol/L (135-145)
[2021-04-19 07:37] LABS: Mean Corpuscular Volume 100.8 fL (80-98)
[2021-04-19 07:39] LABS: Glucose, Whole Blood 176 mg/dL (60-115)
[2021-04-19 07:41] LABS: Calcium 8.2 mg/dL (8.4-10.2)
[2021-04-19] MEDS: 0.9 % Sodium Chloride 1,000 ML 100 ML IVCONT ×2 (09:37→17:57)
[2021-04-19] MEDS: Furosemide 40 MG/4 ML VIAL IVPUSH ×2 (10:19→21:49)
[2021-04-19] MEDS: Heparin Sodium,Porcine 5,000 UNIT/ML VIAL 5000 UNIT SUBCUT ×2 (10:19→21:49)
--- NOTE | 2021-04-19 10:28 | MHC.CLN ---
RE: CONSULT SEE CLINICAL NUTRITION ASSESSMENT
--- NOTE | 2021-04-19 15:31 | PC.NURSE ---
Patient in [facility] for monitoring of encephalopathy and UTI. Monitor showing SB all day. Patient very lethargic throughout shift. Opens eyes to verbal stim, garbled attempt at speech. Only able to state her date of and respond yeah . Pupils small and reactive. Rigid muscle tone when eyes are open. Continues on IV fluids. NPO d/t unsafe swallowing technique noted. ABTx daily at night. Incontinent of urine. PureWick in place. No BM. Incontinence care provided. Daughter present for several hours, updated by doctor this AM yet still is waiting for Echo and BLE venous doppler results.
--- NOTE | 2021-04-19 16:26 | MHC.CM.PN ---
SARAH SPOKE TO PTS DAUGHTER / HCP JOSE PEREZ ([phone]) WHO REPORTS THE PT IS LTC AT [facility]. SHE REPORTS RECENTLY THE PT HAS BEEN BED BOUND BUT BEFORE THAT SHE WAS USING A WHEEL CHAIR AND IF SHE IS WEARING HER SPECIAL LEG BRACE, SHE CAN USE [employer]ARS TO ASSIST IN HER OWN TRANSFER. SHE REPORTS WHEN THE PT IS WITH IT SHE WILL ALSO USE THE SIDE RAILS ON THE BED TO ASSIST IN HER OWN REPOSITIONING. SARAH EXPLAINED PTS MEDICARE RIGHTS AND SHE REQUESTED A COPY BE MAILED TO HER. SHE CONFIRMED THE ADDRESS ON FILE CORRECT. CURRENT DC PLAN IS RETURN TO [facility] VIA S
[2021-04-19 16:41] LABS: Glucose, Whole Blood 147 mg/dL (60-115)
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
[2021-04-19 17:55] LABS: ABG Refer to POC result
[2021-04-19 17:55] LABS: ABG Base Excess -0.4 mmol/L; ABG HCO3 23 mmol/L (22-26); ABG pCO2 36 mmHg (32-45); ABG pCO2 TC 35 mmHg (32-45); ABG pH 7.41 (7.35-7.45); ABG pH TC 7.42 (7.35-7.45); ABG pO2 97 mmHg (83-108); ABG pO2 TC 93 (83-108)
[2021-04-19 20:35] LABS: Glucose, Whole Blood 137 mg/dL (60-115)
[2021-04-19] MEDS: cefTRIAXone sodium 1 GM in 0.9 % Sodium Chloride 50 ML IV (22:02)
[2021-04-20] VITALS (8 sets, daily range): BP systolic 130–154; BP diastolic 53–80; PULSE 61–87; RESP 20–30; TEMP 35.8–36.8; O2SAT 94–97; BMI 34.2
--- NOTE | 2021-04-20 | ECG_ITS ---
Test Reason : RECHECK QTC Blood Pressure : / mmHG Vent. Rate : 059 BPM Atrial Rate : 059 BPM P-R Int : 172 ms QRS Dur : 082 ms QT Int : 458 ms P-R-T Axes : 000 -03 -38 degrees QTc Int : 453 ms Sinus bradycardia Possible Anterior infarct , age undetermined Nonspecific ST and T wave abnormality Abnormal ECG When compared with ECG of 18-APR-2021 22:30, No significant changes seen Referred By: Dennys Carcamo Electronically Signed By:TEN HUFF
[2021-04-20] MEDS: 0.9 % Sodium Chloride 1,000 ML 100 ML IVCONT ×2 (03:56→12:57)
[2021-04-20 07:49] LABS: Glucose, Whole Blood 169 mg/dL (60-115)
[2021-04-20 09:45] LABS: Anion Gap 14 (12-20); Blood Urea Nitrogen 12 mg/dL (9-16); Calcium 7.9 mg/dL (8.4-10.2); Carbon Dioxide 24 mmol/L (22-29); Chloride 109 mmol/L (96-108); Creatinine Clr Calc Pharmacy 57.6; Estimated Glomerular Filt Rate > 60; Glucose Random 165 mg/dL (60-115); Magnesium 2.1 mg/dL (1.6-2.6); Potassium 4.1 mmol/L (3.3-5.1); Sodium 143 mmol/L (135-145)
[2021-04-20] MEDS: ondansetron HCL 4 MG/2 ML VIAL IVPUSH ×2 (09:56→17:45)
[2021-04-20] MEDS: levoFLOXacin/D5W 500 MG/100 ML PIGGYBACK 100 MG IV (10:06)
[2021-04-20 11:00] LABS: Glucose, Whole Blood 164 mg/dL (60-115)
--- NOTE | 2021-04-20 12:31 | MHC.SL.SWA ---
Speech Pathologist Impression: Risk of Aspiration Oralpharyngeal Dysphagia Risk of Aspiration Due to: Neurological Condition Poor PO Intake Reduced Cognition Dysphasia Diet Status: Upgrade Patient awoke to verbal stimuli and change in positioning. Patient was sat up in 90 degree position sitting upright in bed. Patient opened her eyes but did not follow commands. Patient answered some questions stating yes or no. Patient requested pudding but accepted small bites of applesauce. Patient was cued due to decreased awareness for first bite. However, this improved with subsequent bites. Patient was aware and no longer needed cues to swallow after first bite. Patient tolerated subsequent bites with no overt s/s of aspiration. Mildly delayed oral preparatory phase, but with complete recollection upon oral cavity check. Patient ate 3/4 container of applesauce. Patient was given small teaspoon sip of honey thick liquid. Noted cough and wet gurgly throat sounds with liquid. Liquid Consistency and Strategies for Safe Swallow: Liquid Intake Recommendation: Pudding Thick Liquid Intake Strategies: Small Sips Liquids by Teaspoon Only Solid Food Consistency: Dietary Recommendations: Pureed (NDD1) Additional Modifications to Solid Foods: RECOMMEND SINGLE CONSISTENCY WITH 1:1 ASSISTANCE FEEDING, CLOSE MONITORING FOR ANY OVERT S/S OF ASPIRATION, STRICT ASPIRATION PRECAUTIONS, AND FREQUENT ORAL CARE AT LEAST 4 TIMES DAILY OR IDEALLY BEFORE AND AFTER PO INTAKE. RECOMMEND PERIODIC ORAL CAVITY CHECK. TRAY MAY NEED TO BE WITHHELD DEPENDING ON PATIENT'S MENTAL STATUS. Oral Medication Intake: Crushed with Puree Compensatory Strategies and Precautions to be Taken for Safe Swallow: Sitting Upright (90 deg) Liquids from Spoon Small Bites and Sips Rate of Ingestion Change Oral Check Supervision While Eating and Drinking for Safe Swallow: Total Assistance Swallowing Recommended Treatments: Compens. Strategy Educat. Recommendation for Speech: Inpatient Speech Therapy Comment: [employer] WILL CONTINUE TO FOLLOW. Radar Repairer Clinican/Clinical Fellow: No Supervisory Statement: I have reviewed and agree with the student/clinical fellow's documentation: N/A Speech Language Pathologist: Leticia Holman M.A., [facility]
[2021-04-20] MEDS: 0.9 % Sodium Chloride Flush 3 ML SYRINGE IVFLUSH ×2 (12:38→17:28)
[2021-04-20] MEDS: Heparin Sodium,Porcine 5,000 UNIT/ML VIAL 5000 UNIT SUBCUT (12:50)
--- NOTE | 2021-04-20 15:36 | HO.PM.IMPN ---
Subjective Subjective Date of Service: 04/20/21 Interval History: Still disoriented Not lethargic UCx growing Pseudomonas aeruginosa Per daughter, pt does not have Alzheimer's. Had mild cognitive impairment that got much worse after recent hospitalization for ischemic colitis Review of Systems Review of Systems: Yes Unobtainable due to mental status Physical Exam Vital Signs: Vital Signs: Last Vital Signs Temp 96.4 F L 04/20/21 15:24 Pulse 65 04/20/21 15:24 Resp 30 H 04/20/21 15:24 BP 153/66 H 04/20/21 15:24 Pulse Ox 95 04/20/21 15:24 Body Mass Index 34.2 Gen: tachypneic HEENT: sclera anicteric, moist mucus membranes Neck: supple Lungs: clear to auscultation bilaterally Heart: regular rate and rhythm, no murmurs Abd: soft, non-tender, non-distended Ext: no edema Skin: warm/well-perfused Neuro: alert, disoriented Psych: impaired insight ct Objective Data Current Medications Generic Name Dose Route Start Last Admin Trade Name Freq PRN Reason Stop Dose Admin Acetaminophen 650 mg 04/18/21 22:25 Acetaminophen Supp 650 Mg Supp.Rect [place] Q6H PRN Pain, Mild (Pain Scale 1-3) Clopidogrel Bisulfate 75 mg 04/19/21 09:00 04/20/21 12:38 Clopidogrel Bisulfate 75 Mg Tablet PO Not Given DAILY YRIS Furosemide 40 mg 04/20/21 09:00 04/20/21 12:39 Furosemide 40 Mg Tablet PO Not Given DAILY [facility] Protocol Heparin Sodium (Porcine) 5,000 unit 04/18/21 23:00 04/20/21 12:50 Heparin Sodium,Porcine 5,000 Unit/Ml Vial SUBCUT 5,000 unit Q12H YRIS Administration Sodium Chloride 1,000 mls @ 100 mls/hr 04/18/21 22:25 04/20/21 12:57 Ns IVCONT 100 mls/hr .Q10H YRIS Administration Levofloxacin 250 mg in 50 mls @ 50 mls/hr 04/21/21 09:00 Levaquin IV Q24H YRIS Insulin Glargine 10 unit 04/19/21 21:00 04/19/21 22:53 Insulin Glargine,Hum.Rec.Anlog 100 Unit/Ml 10 Ml Vial SUBCUT Not Given BEDTIME [facility] Morphine Sulfate 4 mg 04/18/21 22:22 04/19/21 21:43 Morphine Sulfate 4 Mg/Ml Cartridge IVPUSH 4 mg Q4H PRN Administration Pain, Severe (Pain Scale 7-10) Protocol Ondansetron HCl 4 mg 04/18/21 22:25 04/20/21 09:56 Ondansetron Hcl 4 Mg/2 Ml Vial IVPUSH 4 mg Q8H PRN Administration Nausea and Vomiting Pharmacy Consult 1 each 04/18/21 18:26 Consult Rx Perform Med Rec MISCELLANE ONCE PRN Consult order Sodium Chloride 3 ml 04/19/21 00:00 04/20/21 12:38 0.9 % Sodium Chloride Flush 3 Ml Syringe IVFLUSH 3 ml QSHIFT [facility] Administration Labs CBC & Chem 7: 04/19/21 06:41 04/20/21 09:10 Labs: Laboratory Results - last 24 hr 04/19/21 04/19/21 04/19/21 16:36 17:47 20:19 O2 Saturation 98.0 ABG pH at Pt Temp 7.41 ABG pH (Temp Correct) 7.42 ABG pCO2 at Pt Temp 36 ABG pCO2 (Temp Corrct 35 ABG pO2 at Pt Temp 97 ABG pO2 (Temp Correct 93 ABG HCO3 23 ABG Base Excess (Actual) -0.4 Anion Gap Estim Creat Clear Calc Estimated GFR POC Glucose 147 H 137 H Random Glucose Calcium Magnesium 04/20/21 04/20/21 04/20/21 07:46 09:10 10:54 O2 Saturation ABG pH at Pt Temp ABG pH (Temp Correct) ABG pCO2 at Pt Temp ABG pCO2 (Temp Corrct ABG pO2 at Pt Temp ABG pO2 (Temp Correct ABG HCO3 ABG Base Excess (Actual) Anion Gap 14 Estim Creat Clear Calc 57.6 Estimated GFR > 60 POC Glucose 169 H 164 H Random Glucose 165 H Calcium 7.9 L Magnesium 2.1 Microbiology Microbiology Results: Microbiology 04/18/21 16:35 Urine Culture - Final Urine Catheterized - Severino Catheter Pseudomonas aeruginosa 04/18/21 14:22 Blood Culture - Preliminary Blood - Venous No growth after 24 hours. 04/18/21 14:22 Blood Culture - Preliminary Blood - Venous No growth after 24 hours. Assessment and Plan (1) Encephalopathy: Status: Acute (2) Acute UTI: Status: Acute (3) CHF (congestive heart failure): Status: Acute Assessment and Plan: hospital d#3 80yo F with recent hemicolectomy due to ischemic colitis, prior CVA, HTN, DM2 admitted from SNF with lethargy # toxic/metabolic encephalopathy - suspect due to UTI, treat as below - STOCK MOVER evaluation: 1:1, NDD1 solids, pudding-thick liquids # Pseudomonas aeurignosa UTI - change ceftriaxone to levofloxacin d#1. monitor QTc- 453 ms today. # tachypnea - unclear cause. CTA chest was limited by motion artifact but LE dopplers were negative. Concern of atelectasis versus scarring in the upper lung zone on the right; will obtain CT chest with contrast today # lactic acidosis - resolved # CHF, not - pulmonary edema on CXR but CT chest does not demonstrate this. TTE showed normal LV systolic function with impaired relaxation filling pattern with elevated filling pressures with mild aortic stenosis and mild mitral regurgitation without significant pulmonary hypertension. per Cardiology not in CHF exacerbation. continue maintenance anahi furosmiede # HTN - resume metoprolol + losartan; holding hydralazine, add back as needed # DM2 - basal glargine + correction-dose lispro # mood disorder - sertraline # hx CVA - continue clopidogrel # VTE ppx - UFH # dispo - eventual return to SNF I updated pt's daughter Lidya by phone [phone] Quality Stroke Does the patient have a stroke diagnosis?: No VTE Prior VTE?: No VTE Risk Level:: Medical - moderate - high VTE Device Contraindication: Treatment Not Indicated VTE Drug Contraindication: N/A - Med Ordered
[2021-04-20 16:45] LABS: Glucose, Whole Blood 140 mg/dL (60-115)
--- NOTE | 2021-04-20 17:39 | PM.EVENT ---
Event Note Date of Service: 04/20/21 Event Note: Called by RN for tachypnea in 40s but SaO2 97% on 4L. HR regular in 60s, lungs clear. Seems out of proportion to exam findings. POC BG 145. Prior to this, the pt had coughed up a large mucous plug that was suctioned. Suspect mucus plugging with atelectasis and possible aspiration underlying. Plan: stat CXR [awaiting CT chest with contrast], ABG, nebs standing/prn, Pulmn consult
[2021-04-20 17:40] LABS: Glucose, Whole Blood 145 mg/dL (60-115)
[2021-04-20] MEDS: Albuterol/Iprat 2.5/0.5MG 3 ML AMPUL.NEB INHALE ×2 (17:51→20:18)
[2021-04-20 18:12] LABS: ABG Refer to POC result
[2021-04-20 18:13] LABS: ABG Base Excess -1.3 mmol/L; ABG HCO3 19 mmol/L (22-26); ABG pCO2 22 mmHg (32-45); ABG pCO2 TC 21 mmHg (32-45); ABG pH 7.54 (7.35-7.45); ABG pH TC 7.56 (7.35-7.45); ABG pO2 88 mmHg (83-108); ABG pO2 TC 81 (83-108)
[2021-04-20] MEDS: iohexoL 350 MG/ML 100 ML INFUS..BTL 85 ML IV (20:13)
[2021-04-20] MEDS: Morphine Sulfate 4 MG/ML CARTRIDGE IVPUSH ×2 (20:20→23:58)
[2021-04-20 20:34] LABS: Glucose, Whole Blood 193 mg/dL (60-115)
[2021-04-21] VITALS (17 sets, daily range): BP systolic 138–186; BP diastolic 6–79; PULSE 55–97; RESP 20–44; TEMP 36.2–37.4; O2SAT 88–99; BMI 34.6
--- NOTE | 2021-04-21 | ECG_ITS ---
Test Reason : check QTc Blood Pressure : / mmHG Vent. Rate : 066 BPM Atrial Rate : 066 BPM P-R Int : 172 ms QRS Dur : 094 ms QT Int : 450 ms P-R-T Axes : 009 -08 -66 degrees QTc Int : 471 ms Normal sinus rhythm ST & T wave abnormality, consider inferolateral ischemia Prolonged QT Abnormal ECG When compared with ECG of 20-APR-2021, No significant change was found Referred By: Dennys Carcamo Electronically Signed By:NIELS LYNNE
[2021-04-21] MEDS: Furosemide 40 MG/4 ML VIAL IVPUSH ×2 (00:04→10:24)
[2021-04-21] MEDS: Heparin Sodium,Porcine 5,000 UNIT/ML VIAL 5000 UNIT SUBCUT ×2 (00:05→12:05)
[2021-04-21] MEDS: 0.9 % Sodium Chloride Flush 3 ML SYRINGE IVFLUSH ×3 (00:09→16:31)
[2021-04-21 05:15] LABS: Hematocrit 25.9 % (37-47); Mean Corpuscular HGB Conc 30.9 g/dl (31.0-35.0); Mean Corpuscular Volume 100.4 fL (80-98); Mean Platelet Volume 10.3 fL (9.4-12.3); Platelet Count 235 X10*3/uL (160-400); Red Blood Count 2.58 X10*6/uL (4.20-5.50); Red Cell Distribution Width 14.1 % (11.0-16.0)
[2021-04-21 05:44] LABS: Anion Gap 16 (12-20); Blood Urea Nitrogen 14 mg/dL (9-16); Calcium 8.1 mg/dL (8.4-10.2); Carbon Dioxide 23 mmol/L (22-29); Chloride 109 mmol/L (96-108); Creatinine Clr Calc Pharmacy 51.6; Estimated Glomerular Filt Rate 56; Glucose Random 216 mg/dL (60-115); Sodium 144 mmol/L (135-145)
[2021-04-21 07:22] LABS: Glucose, Whole Blood 206 mg/dL (60-115)
[2021-04-21] MEDS: Albuterol/Iprat 2.5/0.5MG 3 ML AMPUL.NEB INHALE ×4 (07:34→18:40)
[2021-04-21] MEDS: levoFLOXacin/D5W 250 MG/50 ML PIGGYBACK 50 MG IV (10:07)
[2021-04-21 10:14] LABS: B Type Natriuretic Peptide 1115 pg/mL (<100)
[2021-04-21] MEDS: Morphine Sulfate 4 MG/ML CARTRIDGE IVPUSH ×2 (10:24→21:36)
[2021-04-21 11:10] LABS: Glucose, Whole Blood 227 mg/dL (60-115)
[2021-04-21] MEDS: Insulin Lispro 100 UNIT/ML 3 ML VIAL SUBCUT ×3 (12:04→21:32)
[2021-04-21] MEDS: Metoprolol Tartrate 5 MG in 0.9 % Sodium Chloride 50 ML 220 MG IV ×2 (12:05→17:10)
[2021-04-21] MEDS: LORazepam 2 MG/ML VIAL 0.25 MG IVPUSH (13:56)
--- NOTE | 2021-04-21 14:25 | HO.PM.IMPN ---
Subjective Subjective Date of Service: 04/21/21 Interval History: Intermittently tachypneic without corresponding tachycardia or hypoxia. Per daughter Lidya, pt has hx of PTSD and anxiety. She has developed respiratory alkalosis from hyperventilation again. Due to impaired mental status, cannot obtain an ROS Review of Systems Review of Systems: Yes Unobtainable due to mental status Physical Exam Vital Signs: Vital Signs: Last Vital Signs Temp 98.6 F 04/21/21 11:18 Pulse 79 04/21/21 11:22 Resp 40 H 04/21/21 11:18 BP 148/68 H 04/21/21 14:07 Pulse Ox 99 04/21/21 11:18 Body Mass Index 34.6 Gen: tachypneic HEENT: sclera anicteric, moist mucus membranes Neck: supple Lungs: slightly diminished at bases, intermittently tachypneic Heart: regular rate and rhythm, no murmurs Abd: soft, non-tender, non-distended Ext: no edema Skin: warm/well-perfused Neuro: alert, disoriented Psych: impaired insight Objective Data Current Medications Generic Name Dose Route Start Last Admin Trade Name Freq PRN Reason Stop Dose Admin Acetaminophen 650 mg 04/18/21 22:25 Acetaminophen Supp 650 Mg Supp.Rect W[place] Q6H PRN Pain, Mild (Pain Scale 1-3) Albuterol Sulfate 2.5 mg 04/20/21 17:37 Albuterol Sulfate (0.083%) 2.5 Mg/3 Ml Vial.Neb INHALE Q2H PRN shortness of breath/wheeze Albuterol/Ipratropium 3 ml 04/20/21 20:00 04/21/21 11:17 Albuterol/Iprat 2.5/0.5mg 3 Ml Ampul.Neb INHALE 3 ml RQ4H WHILE AWAKE YRIS Administration Clopidogrel Bisulfate 75 mg 04/19/21 09:00 04/21/21 12:03 Clopidogrel Bisulfate 75 Mg Tablet PO Not Given DAILY YRIS Dextrose 25 gm 04/21/21 10:28 Dextrose 50 % 25 Gm/50 Ml Vial IVPUSH Q15M PRN per Hypoglycemia Standing Ord. Protocol Furosemide 40 mg 04/21/21 09:00 04/21/21 10:24 Furosemide 40 Mg/4 Ml Vial IVPUSH 40 mg DAILY YRIS Administration Protocol Glucose 15 gm 04/21/21 10:28 Glucose Gel 15 Gm Gel..Gram. PO Q15M PRN per Hypoglycemia Standing Ord. Protocol Heparin Sodium (Porcine) 5,000 unit 04/18/21 23:00 04/21/21 12:05 Heparin Sodium,Porcine 5,000 Unit/Ml Vial SUBCUT 5,000 unit Q12H YRIS Administration Hydralazine HCl 5 mg 04/21/21 11:45 Hydralazine Hcl 20 Mg/Ml Vial IVPUSH Q4H PRN SBP >180 Protocol Levofloxacin 250 mg in 50 mls @ 50 mls/hr 04/21/21 09:00 04/21/21 11:46 Levaquin IV Infused Q24H YRIS Infusion Metoprolol Tartrate 5 mg/ 55 mls @ 220 mls/hr 04/21/21 11:45 04/21/21 12:58 Sodium Chloride IV Infused Q6H [facility] Infusion Insulin Glargine 10 unit 04/19/21 21:00 04/20/21 21:32 Insulin Glargine,Hum.Rec.Anlog 100 Unit/Ml 10 Ml Vial SUBCUT Not Given BEDTIME [facility] Insulin Human Lispro 0 unit 04/21/21 11:30 04/21/21 12:04 Insulin Lispro 100 Unit/Ml 3 Ml Vial SUBCUT 4 unit QIDACHS [facility] Administration Protocol Lorazepam 0.25 mg 04/21/21 11:51 04/21/21 13:56 Lorazepam 2 Mg/Ml Vial IVPUSH 0.25 mg Q4H PRN Administration anxiety Losartan Potassium 50 mg 04/21/21 09:00 04/21/21 12:04 Losartan Potassium 50 Mg Tablet PO Not Given DAILY [facility] Protocol Morphine Sulfate 4 mg 04/18/21 22:22 04/21/21 10:24 Morphine Sulfate 4 Mg/Ml Cartridge IVPUSH 4 mg Q4H PRN Administration Pain, Severe (Pain Scale 7-10) Protocol Ondansetron HCl 4 mg 04/18/21 22:25 04/20/21 17:45 Ondansetron Hcl 4 Mg/2 Ml Vial IVPUSH 4 mg Q8H PRN Administration Nausea and Vomiting Pharmacy Consult 1 each 04/18/21 18:26 Consult Rx Perform Med Rec MISCELLANE ONCE PRN Consult order Sertraline HCl 100 mg 04/20/21 21:00 08/13/21 21:29 Sertraline Hcl 100 Mg Tablet PO Not Given BEDTIME [facility] Sodium Chloride 3 ml 04/19/21 00:00 04/21/21 00:11 0.9 % Sodium Chloride Flush 3 Ml Syringe IVFLUSH 3 ml QSHIFT [facility] Administration Labs CBC & Chem 7: 04/21/21 04:25 04/21/21 04:25 Labs: Laboratory Results - last 24 hr 04/20/21 04/20/21 04/20/21 16:37 17:34 18:02 MCV MCH MCHC RDW Plt Count MPV Absolute Nucleated RBC Nucleated RBC % (auto) O2 Saturation 98.0 ABG pH at Pt Temp 7.54 H ABG pH (Temp Correct) 7.56 H ABG pCO2 at Pt Temp 22 L ABG pCO2 (Temp Corrct 21 L ABG pO2 at Pt Temp 88 ABG pO2 (Temp Correct 81 L ABG HCO3 19 L ABG Base Excess (Actual) -1.3 Anion Gap Estim Creat Clear Calc Estimated GFR POC Glucose 140 H 145 H Random Glucose Calcium B-Natriuretic Peptide 04/20/21 04/21/21 04/21/21 20:17 04:25 04:25 MCV 100.4 H MCH 31.0 MCHC 30.9 L RDW 14.1 Plt Count 235 MPV 10.3 Absolute Nucleated RBC 0.000 Nucleated RBC % (auto) 0.0 O2 Saturation ABG pH at Pt Temp ABG pH (Temp Correct) ABG pCO2 at Pt Temp ABG pCO2 (Temp Corrct ABG pO2 at Pt Temp ABG pO2 (Temp Correct ABG HCO3 ABG Base Excess (Actual) Anion Gap 16 Estim Creat Clear Calc 51.6 Estimated GFR 56 POC Glucose 193 H Random Glucose 216 H Calcium 8.1 L B-Natriuretic Peptide 04/21/21 04/21/21 04/21/21 07:13 09:31 11:00 MCV MCH MCHC RDW Plt Count MPV Absolute Nucleated RBC Nucleated RBC % (auto) O2 Saturation ABG pH at Pt Temp ABG pH (Temp Correct) ABG pCO2 at Pt Temp ABG pCO2 (Temp Corrct ABG pO2 at Pt Temp ABG pO2 (Temp Correct ABG HCO3 ABG Base Excess (Actual) Anion Gap Estim Creat Clear Calc Estimated GFR POC Glucose 206 H 227 H Random Glucose Calcium B-Natriuretic Peptide 1115 H Impressions Chest X-Ray 04/20/21 18:39 IMPRESSION: Mild cardiomegaly. Right upper lobe patchy linear density at question infiltrate/atelectasis. There is increased parahilar vascular markings more so on the right and left suspicious for interstitial pneumonitis or vascular congestion. Chest CT 04/20/21 20:05 IMPRESSION: 1. Exam limited by motion artifact and artifact from imaging with patient's arms at the side. 2. No gross acute abnormality of the lungs. There are small bilateral pleural effusions. Microbiology Microbiology Results: Microbiology 04/18/21 14:22 Blood Culture - Preliminary Blood - Venous No growth after 48 hours. 04/18/21 14:22 Blood Culture - Preliminary Blood - Venous No growth after 48 hours. Assessment and Plan (1) Encephalopathy: Status: Acute (2) Acute UTI: Status: Acute (3) CHF (congestive heart failure): Status: Acute Assessment and Plan: hospital d#4 80yo F with recent hemicolectomy due to ischemic colitis, prior CVA, HTN, DM2 admitted from SNF with lethargy # toxic/metabolic encephalopathy - suspect due to UTI, treat as below - NON PROFIT JOB TITLES evaluation: 1:1, NDD1 solids, pudding-thick liquids. noted to be retaining pills in her cheek- will hold PO meds. NON PROFIT JOB TIT[employer] to follow closely. # Pseudomonas aeurignosa UTI - changed ceftriaxone to levofloxacin d#2. monitor QTc- 453 ms yesterday; will order repeat # tachypnea - unclear cause. CTA chest was limited by motion artifact but LE dopplers were negative. Has small bibasilar pleural effusions and BNP has elevated, so we are diuresing. I will obtain Pulm consult as well as her tachypnea seems out of proportion to the rest of her clinical picture. # acute/chronic HFpEF - TTE showed normal LV systolic function with impaired relaxation filling pattern with elevated filling pressures with mild aortic stenosis and mild mitral regurgitation without significant pulmonary hypertension. per Cardiology not in CHF exacerbation. will continue IV diuresis and monitor I+O, BNP, BMP, Mg # HTN - changed metoprolol PO->IV and will add prn IV hydralazine. holding losartan until can swallow pills safely. - resume metoprolol + losartan; holding hydralazine, add back as needed # lactic acidosis - resolved # DM2 - basal glargine + correction-dose lispro # mood disorder - sertraline # hx CVA - continue clopidogrel # VTE ppx - UFH # dispo - eventual return to SNF I updated pt's daughter Lidya by phone [phone] Quality Stroke Does the patient have a stroke diagnosis?: No VTE Prior VTE?: No VTE Risk Level:: Medical - moderate - high VTE Device Contraindication: Treatment Not Indicated VTE Drug Contraindication: N/A - Med Ordered
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
[2021-04-21 15:00] LABS: Estimated Average Glucose 131 mg/dL; Hemoglobin A1c % 6.2 %
[2021-04-21 16:49] LABS: Glucose, Whole Blood 159 mg/dL (60-115)
[2021-04-21] MEDS: acetaZOLAMIDE sodium 500 MG VIAL 250 MG IVPUSH (17:09)
--- NOTE | 2021-04-21 19:04 | PC.NURSE ---
Swallowing, pt was unable to swallow her breakfast , which had to be suctioned from her mouth. All medication food were held as I was not comfortable giving her p.o. Pt has consistent episode of of hyperventilation and tachypnea with respirations >40's. PRN morphine was given which was not effective on her breathing, therefore the MD ordered a small dose 0.25mg IV of Ativan, which helped the patient to relax and sleep for a bit. MD was made aware and her medications were updated via IV. Pulmonary saw patient and started patient on Diamox. per speech note she s on Pureed with pudding thick liquids, however pt could use further evaluation. Daughter was also present in the room and she agreed that her mom shouldn't have anything PO until she is more to her baseline.
[2021-04-21 21:00] LABS: Glucose, Whole Blood 172 mg/dL (60-115)
[2021-04-22] VITALS (21 sets, daily range): BP systolic 144–190; BP diastolic 62–83; PULSE 59–74; RESP 18–24; TEMP 36.1–36.8; O2SAT 91–98; BMI 33.9
[2021-04-22] MEDS: Heparin Sodium,Porcine 5,000 UNIT/ML VIAL 5000 UNIT SUBCUT ×3 (00:03→23:25)
[2021-04-22] MEDS: Metoprolol Tartrate 5 MG in 0.9 % Sodium Chloride 50 ML 220 MG IV ×5 (00:03→23:25)
[2021-04-22] MEDS: 0.9 % Sodium Chloride Flush 3 ML SYRINGE IVFLUSH ×4 (00:14→21:11)
[2021-04-22] MEDS: LORazepam 2 MG/ML VIAL 0.25 MG IVPUSH ×2 (02:29→09:11)
[2021-04-22] MEDS: hydrALAZINE HCl 20 MG/ML VIAL 5 MG IVPUSH ×3 (04:56→14:21)
[2021-04-22] MEDS: Morphine Sulfate 4 MG/ML CARTRIDGE IVPUSH ×2 (05:00→15:37)
[2021-04-22 06:09] LABS: Anion Gap 14 (12-20); Blood Urea Nitrogen 19 mg/dL (9-16); Calcium 8.5 mg/dL (8.4-10.2); Carbon Dioxide 26 mmol/L (22-29); Chloride 112 mmol/L (96-108); Creatinine Clr Calc Pharmacy 48.7; Estimated Glomerular Filt Rate 52; Glucose Random 196 mg/dL (60-115); Magnesium 2.3 mg/dL (1.6-2.6); Potassium 3.6 mmol/L (3.3-5.1); Sodium 148 mmol/L (135-145)
[2021-04-22 06:12] LABS: Venous Blood Gas Refer to POC result
[2021-04-22 06:13] LABS: VBG Base Excess -3.3 mmol/L; VBG HCO3 22 mmol/L (22-26); VBG pCO2 39 mmHg; VBG pH 7.34 (7.32-7.43); VBG pO2 54 mmHg
[2021-04-22 06:13] LABS: B Type Natriuretic Peptide 1676 pg/mL (<100)
[2021-04-22] MEDS: Albuterol/Iprat 2.5/0.5MG 3 ML AMPUL.NEB INHALE ×4 (07:31→19:41)
[2021-04-22 07:34] LABS: Glucose, Whole Blood 177 mg/dL (60-115)
--- NOTE | 2021-04-22 08:48 | P.PNIM_ITS ---
Subjective Subjective Date of Service: 04/22/21 Interval History: Seen in f/u for encephalopathy, ?HF, UTI, eradic respiratory pattern, remains confusion. Review of Systems Review of Systems: Yes Unobtainable due to mental status Physical Exam Vital Signs: Vital Signs: Last Vital Signs Temp 97.0 F 04/22/21 07:37 Pulse 64 04/22/21 07:37 Resp 21 H 04/22/21 07:37 BP 184/77 H 04/22/21 07:37 Pulse Ox 94 04/22/21 07:37 Body Mass Index 33.9 Gen: tachypneic HEENT: sclera anicteric, moist mucus membranes Neck: supple Lungs: slightly diminished at bases, intermittently tachypneic Heart: regular rate and rhythm, no murmurs Abd: soft, non-tender, non-distended Ext: no edema Skin: warm/well-perfused Neuro: alert, disoriented Psych: impaired insight Objective Data Current Medications Generic Name Dose Route Start Last Admin Trade Name Freq PRN Reason Stop Dose Admin Acetaminophen 650 mg 04/18/21 22:25 Acetaminophen Supp 650 Mg Supp.Rect CA Q6H PRN Pain, Mild (Pain Scale 1-3) Acetazolamide 250 mg 04/21/21 17:00 04/21/21 17:09 Acetazolamide Sodium 500 Mg Vial IVPUSH 250 mg BIDWM YRIS Administration Albuterol Sulfate 2.5 mg 04/20/21 17:37 Albuterol Sulfate (0.083%) 2.5 Mg/3 Ml Vial.Neb INHALE Q2H PRN shortness of breath/wheeze Albuterol/Ipratropium 3 ml 04/20/21 20:00 04/22/21 07:31 Albuterol/Iprat 2.5/0.5mg 3 Ml Ampul.Neb INHALE 3 ml RQ4H WHILE AWAKE YRIS Administration Clopidogrel Bisulfate 75 mg 04/19/21 09:00 04/21/21 12:03 Clopidogrel Bisulfate 75 Mg Tablet PO Not Given DAILY YRIS Dextrose 25 gm 04/21/21 10:28 Dextrose 50 % 25 Gm/50 Ml Vial IVPUSH Q15M PRN per Hypoglycemia Standing Ord. Protocol Furosemide 40 mg 04/21/21 09:00 04/21/21 10:24 Furosemide 40 Mg/4 Ml Vial IVPUSH 40 mg DAILY YRIS Administration Protocol Glucose 15 gm 04/21/21 10:28 Glucose Gel 15 Gm Gel..Gram. PO Q15M PRN per Hypoglycemia Standing Ord. Protocol Heparin Sodium (Porcine) 5,000 unit 04/18/21 23:00 04/22/21 00:03 Heparin Sodium,Porcine 5,000 Unit/Ml Vial SUBCUT 5,000 unit Q12H YRIS Administration Hydralazine HCl 5 mg 04/21/21 11:45 04/22/21 04:56 Hydralazine Hcl 20 Mg/Ml Vial IVPUSH 5 mg Q4H PRN Administration SBP >180 Protocol Levofloxacin 250 mg in 50 mls @ 50 mls/hr 04/21/21 09:00 04/21/21 11:46 Levaquin IV Infused Q24H YRIS Infusion Metoprolol Tartrate 5 mg/ 55 mls @ 220 mls/hr 04/21/21 11:45 04/22/21 06:20 Sodium Chloride IV Infused Q6H [facility] Infusion Insulin Glargine 10 unit 04/19/21 21:00 04/21/21 21:26 Insulin Glargine,Hum.Rec.Anlog 100 Unit/Ml 10 Ml Vial SUBCUT Not Given BEDTIME [facility] Insulin Human Lispro 0 unit 04/21/21 11:30 04/21/21 21:32 Insulin Lispro 100 Unit/Ml 3 Ml Vial SUBCUT 2 unit QIDACHS [facility] Administration Protocol Lorazepam 0.25 mg 04/21/21 11:51 04/22/21 02:29 Lorazepam 2 Mg/Ml Vial IVPUSH 0.25 mg Q4H PRN Administration anxiety Losartan Potassium 50 mg 04/21/21 09:00 04/21/21 12:04 Losartan Potassium 50 Mg Tablet PO Not Given DAILY [facility] Protocol Morphine Sulfate 4 mg 04/18/21 22:22 04/22/21 05:00 Morphine Sulfate 4 Mg/Ml Cartridge IVPUSH 4 mg Q4H PRN Administration Pain, Severe (Pain Scale 7-10) Protocol Ondansetron HCl 4 mg 04/18/21 22:25 04/20/21 17:45 Ondansetron Hcl 4 Mg/2 Ml Vial IVPUSH 4 mg Q8H PRN Administration Nausea and Vomiting Pharmacy Consult 1 each 04/18/21 18:26 Consult Rx Perform Med Rec MISCELLANE ONCE PRN Consult order Sertraline HCl 100 mg 04/20/21 21:00 04/21/21 21:39 Sertraline Hcl 100 Mg Tablet PO Not Given BEDTIME [facility] Sodium Chloride 3 ml 04/19/21 00:00 04/22/21 00:14 0.9 % Sodium Chloride Flush 3 Ml Syringe IVFLUSH 3 ml QSHIFT [facility] Administration Labs CBC & Chem 7: 04/21/21 04:25 04/22/21 05:21 Labs: Laboratory Results - last 24 hr 04/21/21 04/21/21 04/21/21 04:25 09:31 11:00 VBG pH VBG pCO2 VBG pO2 VBG HCO3 VBG O2 Saturation VBG Base Excess Anion Gap Estim Creat Clear Calc Estimated GFR POC Glucose 227 H Random Glucose Estimat Average Glucose 131 Hemoglobin A1c % 6.2 Calcium Magnesium B-Natriuretic Peptide 1115 H 04/21/21 04/21/21 04/22/21 16:19 20:56 05:21 VBG pH VBG pCO2 VBG pO2 VBG HCO3 VBG O2 Saturation VBG Base Excess Anion Gap 14 Estim Creat Clear Calc 48.7 Estimated GFR 52 POC Glucose 159 H 172 H Random Glucose 196 H Estimat Average Glucose Hemoglobin A1c % Calcium 8.5 Magnesium 2.3 B-Natriuretic Peptide 04/22/21 04/22/21 04/22/21 05:21 05:24 07:21 VBG pH 7.34 VBG pCO2 39 VBG pO2 54 VBG HCO3 22 VBG O2 Saturation 83.0 VBG Base Excess -3.3 Anion Gap Estim Creat Clear Calc Estimated GFR POC Glucose 177 H Random Glucose Estimat Average Glucose Hemoglobin A1c % Calcium Magnesium B-Natriuretic Peptide 1676 H Assessment and Plan (1) Encephalopathy: Status: Acute (2) Acute UTI: Status: Acute (3) CHF (congestive heart failure): Status: Acute Assessment and Plan: hospital d#5 80yo F with recent hemicolectomy due to ischemic colitis, prior CVA, HTN, DM2 admitted from SNF with lethargy # toxic/metabolic encephalopathy - suspect due to UTI, treat as below - [employer] evaluation: 1:1, NDD1 solids, pudding-thick liquids. noted to be retaining pills in her cheek- will hold PO meds. [employer] to follow closely. # Pseudomonas aeurignosa UTI - changed ceftriaxone to levofloxacin d#3. monitor QTc- # tachypnea, intermittently - unclear cause. CTA chest was limited by motion artifact but LE dopplers were negative. Has small bibasilar pleural effusions and BNP has elevated, so we are diuresing. -Pulmonary consult # acute/chronic HFpEF - TTE showed normal LV systolic function with impaired relaxation filling pattern with elevated filling pressures with mild aortic stenosis and mild mitral regurgitation without significant pulmonary hypertension. per Cardiology not in CHF exacerbation. will continue IV diuresis and monitor I+O, BNP much higher at 1600 today, sodium is going up # HTN - changed metoprolol PO->IV and and prn IV hydralazine. holding losartan until can swallow pills safely. - resume metoprolol + losartan; holding hydralazine, add back as needed, if pe rsistently high, ask Nephrology to help #Hypernatremia-likely from Lasix, Nephrology consult, hold Lasix # lactic acidosis - resolved # DM2 - basal glargine + correction-dose lispro # mood disorder - sertraline # hx CVA - continue clopidogrel # VTE ppx - UFH # dispo - eventual return to SNF I updated pt's daughter Lidya by phone [phone] Quality Stroke Does the patient have a stroke diagnosis?: No VTE Prior VTE?: No VTE Risk Level:: Medical - moderate - high VTE Device Contraindication: Treatment Not Indicated VTE Drug Contraindication: N/A - Med Ordered
[2021-04-22] MEDS: Insulin Lispro 100 UNIT/ML 3 ML VIAL SUBCUT ×4 (09:10→21:11)
[2021-04-22] MEDS: acetaZOLAMIDE sodium 500 MG VIAL 250 MG IVPUSH ×2 (09:11→17:08)
[2021-04-22] MEDS: Furosemide 40 MG/4 ML VIAL IVPUSH (09:12)
[2021-04-22] MEDS: levoFLOXacin/D5W 250 MG/50 ML PIGGYBACK 50 MG IV (09:12)
[2021-04-22 16:22] LABS: Glucose, Whole Blood 179 mg/dL (60-115)
[2021-04-22 16:22] LABS: Glucose, Whole Blood 172 mg/dL (60-115)
[2021-04-22 19:54] LABS: Glucose, Whole Blood 177 mg/dL (60-115)
[2021-04-23] VITALS (13 sets, daily range): BP systolic 156–200; BP diastolic 62–90; PULSE 60–73; RESP 18–24; TEMP 36.2–37.3; O2SAT 91–100; BMI 30.8
[2021-04-23] MEDS: LORazepam 2 MG/ML VIAL 0.25 MG IVPUSH (01:37)
[2021-04-23] MEDS: Metoprolol Tartrate 5 MG in 0.9 % Sodium Chloride 50 ML 220 MG IV ×4 (05:15→23:31)
[2021-04-23 07:12] LABS: Glucose, Whole Blood 183 mg/dL (60-115)
[2021-04-23] MEDS: Albuterol/Iprat 2.5/0.5MG 3 ML AMPUL.NEB INHALE ×3 (07:20→20:13)
[2021-04-23] MEDS: 0.9 % Sodium Chloride Flush 3 ML SYRINGE IVFLUSH ×2 (07:45→15:21)
[2021-04-23 08:31] LABS: Hematocrit 28.9 % (37-47); Mean Corpuscular HGB Conc 31.1 g/dl (31.0-35.0); Mean Corpuscular Hemoglobin 31.6 pg (27.0-33.0); Mean Corpuscular Volume 101.4 fL (80-98); Mean Platelet Volume 9.5 fL (9.4-12.3); NRBC Pct Auto 0.2 /100WBC (0.0-0.2); Platelet Count 242 X10*3/uL (160-400); Red Blood Count 2.85 X10*6/uL (4.20-5.50); Red Cell Distribution Width 14.7 % (11.0-16.0); White Blood Count 9.6 X10*3/uL (4.8-10.8)
[2021-04-23 08:59] LABS: Anion Gap 14 (12-20); Blood Urea Nitrogen 26 mg/dL (9-16); Calcium 8.6 mg/dL (8.4-10.2); Carbon Dioxide 24 mmol/L (22-29); Chloride 115 mmol/L (96-108); Creatinine Clr Calc Pharmacy 46.8; Estimated Glomerular Filt Rate 54; Glucose Random 213 mg/dL (60-115); Potassium 3.3 mmol/L (3.3-5.1); Sodium 150 mmol/L (135-145)
[2021-04-23] MEDS: acetaZOLAMIDE sodium 500 MG VIAL 250 MG IVPUSH ×2 (08:59→16:57)
[2021-04-23] MEDS: levoFLOXacin/D5W 250 MG/50 ML PIGGYBACK 50 MG IV (08:59)
--- NOTE | 2021-04-23 10:20 | HO.PM.IMPN ---
Subjective Subjective Date of Service: 04/23/21 Interval History: Seen in f/u for encephalopathy, ?HF, UTI, eradic respiratory pattern, remains confusion--it doesn't appear she has heart failure, BNP has gone up, sodium is going up and clinically looks dry Review of Systems Review of Systems:?Yes Unobtainable due to mental status Physical Exam Vital Signs: Vital Signs: Last Vital Signs Temp 98.4 F 04/23/21 07:29 Pulse 62 04/23/21 07:29 Resp 22 H 04/23/21 07:29 BP 160/62 H 04/23/21 07:29 Pulse Ox 100 04/23/21 07:29 Body Mass Index 30.8 Const: Other: Gen: tachypneic, catatonic, confused HEENT: sclera anicteric, moist mucus membranes Neck: supple Lungs: slightly diminished at bases, intermittently tachypneic Heart: regular rate and rhythm, no murmurs Abd: soft, non-tender, non-distended Ext: no edema Skin: warm/well-perfused Neuro: alert, disoriented Psych: impaired insight Objective Data Current Medications Generic Name Dose Route Start Last Admin Trade Name Freq PRN Reason Stop Dose Admin Acetaminophen 650 mg 04/18/21 22:25 Acetaminophen Supp [address] Q6H PRN Pain, Mild (Pain Scale 1-3) Acetazolamide 250 mg 04/21/21 17:00 04/23/21 08:59 Acetazolamide Sodium 500 Mg Vial IVPUSH 250 mg BIDWM YRIS Administration Albuterol Sulfate 2.5 mg 04/20/21 17:37 Albuterol Sulfate (0.083%) 2.5 Mg/3 Ml Vial.Neb INHALE Q2H PRN shortness of breath/wheeze Albuterol/Ipratropium 3 ml 04/20/21 20:00 04/23/21 07:20 Albuterol/Iprat 2.5/0.5mg 3 Ml Ampul.Neb INHALE 3 ml RQ4H WHILE AWAKE YRIS Administration Clopidogrel Bisulfate 75 mg 04/19/21 09:00 04/23/21 07:46 Clopidogrel Bisulfate 75 Mg Tablet PO Not Given DAILY YRIS Dextrose 25 gm 04/21/21 10:28 Dextrose 50 % 25 Gm/50 Ml Vial IVPUSH Q15M PRN per Hypoglycemia Standing Ord. Protocol Glucose 15 gm 04/21/21 10:28 Glucose Gel 15 Gm Gel..Gram. PO Q15M PRN per Hypoglycemia Standing Ord. Protocol Heparin Sodium (Porcine) 5,000 unit 04/18/21 23:00 04/22/21 23:25 Heparin Sodium,Porcine 5,000 Unit/Ml Vial SUBCUT 5,000 unit Q12H YRIS Administration Hydralazine HCl 5 mg 04/21/21 11:45 04/22/21 14:21 Hydralazine Hcl 20 Mg/Ml Vial IVPUSH 5 mg Q4H PRN Administration SBP >180 Protocol Levofloxacin 250 mg in 50 mls @ 50 mls/hr 04/21/21 09:00 04/23/21 10:02 Levaquin IV Infused Q24H [facility] Infusion Metoprolol Tartrate 5 mg/ 55 mls @ 220 mls/hr 04/21/21 11:45 04/23/21 06:14 Sodium Chloride IV Infused Q6H [facility] Infusion Dextrose/Lactated Ringer's 1,000 mls @ 100 mls/hr 04/23/21 10:30 D5lr IVCONT .Q10H [facility] Insulin Glargine 10 unit 04/19/21 21:00 04/22/21 21:12 Insulin Glargine,Hum.Rec.Anlog 100 Unit/Ml 10 Ml Vial SUBCUT Not Given BEDTIME [facility] Insulin Human Lispro 0 unit 04/21/21 11:30 04/23/21 07:17 Insulin Lispro 100 Unit/Ml 3 Ml Vial SUBCUT Not Given QIDACHS [facility] Protocol Lorazepam 0.25 mg 04/21/21 11:51 04/23/21 01:37 Lorazepam 2 Mg/Ml Vial IVPUSH 0.25 mg Q4H PRN Administration anxiety Losartan Potassium 50 mg 04/21/21 09:00 04/23/21 07:46 Losartan Potassium 50 Mg Tablet PO Not Given DAILY [facility] Protocol Morphine Sulfate 4 mg 04/18/21 22:22 04/22/21 15:37 Morphine Sulfate 4 Mg/Ml Cartridge IVPUSH 4 mg Q4H PRN Administration Pain, Severe (Pain Scale 7-10) Protocol Ondansetron HCl 4 mg 04/18/21 22:25 04/20/21 17:45 Ondansetron Hcl 4 Mg/2 Ml Vial IVPUSH 4 mg Q8H PRN Administration Nausea and Vomiting Pharmacy Consult 1 each 04/18/21 18:26 Consult Rx Perform Med Rec MISCELLANE ONCE PRN Consult order Sertraline HCl 100 mg 04/20/21 21:00 04/22/21 21:12 Sertraline Hcl 100 Mg Tablet PO Not Given BEDTIME YRIS Sodium Chloride 3 ml 04/19/21 00:00 04/23/21 07:45 0.9 % Sodium Chloride Flush 3 Ml Syringe IVFLUSH 3 ml QSHIFT YRIS Administration Labs CBC & Chem 7: 04/23/21 08:08 04/23/21 08:08 Assessment and Plan (1) Encephalopathy: Status: Acute (2) Acute UTI: Status: Acute (3) CHF (congestive heart failure): Status: Acute Assessment and Plan: hospital d#6 80yo F with recent hemicolectomy due to ischemic colitis, prior CVA, HTN, DM2 admitted from SNF with lethargy # toxic/metabolic encephalopathy - suspect due to UTI, and possibly other causes, treat as below - [employer] evaluation: 1:1, NDD1 solids, pudding-thick liquids. noted to be retaining pills in her cheek- will hold PO meds. [employer] to follow closely. # Pseudomonas aeurignosa UTI - changed ceftriaxone to levofloxacin d#4. monitor QTc- # tachypnea, intermittently - unclear cause. CTA chest was limited by motion artifact but LE dopplers were negative. Has small bibasilar pleural effusions and BNP has elevated, so was been diuressed but then sodium is going, -Pulmonary consult--possibly has mucus plug and may need intubation for better management. Daughter doesn't want that # acute/chronic HFpEF - TTE showed normal LV systolic function with impaired relaxation filling pattern with elevated filling pressures with mild aortic stenosis and mild mitral regurgitation without significant pulmonary hypertension. per Cardiology not in CHF exacerbation, despite increaseing BNP. Stop Lasix d/t increaseing sodium and BUN # HTN - changed metoprolol PO->IV and and prn IV hydralazine. holding losartan until can swallow pills safely. - oral meds when able to swallow safely; Nephrology to help with management #Hypernatremia-likely from Lasix, Nephrology consult, hold Lasix. Repeat labs later today # lactic acidosis - resolved # DM2 - basal glargine + correction-dose lispro--Monitor sugars closely while NPO # mood disorder - sertraline # hx CVA - continue clopidogrel # HypErnatremia--from free water deficit, and worsen by Lasix, Nephro consult. Discontinued Lasix. Start D5+LR # VTE ppx - UFH # dispo - eventual return to SNF I updated pt's daughter Lidya by phone [phone] yesterday and if not improving over the next 24 48, will consider comfort care Quality Stroke Does the patient have a stroke diagnosis?: No VTE Prior VTE?: No VTE Risk Level:: Medical - moderate - high VTE Device Contraindication: Treatment Not Indicated VTE Drug Contraindication: N/A - Med Ordered
--- NOTE | 2021-04-23 10:24 | MHC.SLORD ---
Speech Language Pathology Order Status: DESIGN LEAD checked in with RN. Due to mental status, it is not safe to give patient PO trials at this time. Per chart review, patient exhibited difficulty swallowing and required suctioning 04/21/21. Patient has been NPO since and medications have been held. Recommend continue NPO status. Plan to re-evaluate tomorrow morning if appropriate.
[2021-04-23] MEDS: Dextrose 5 % and Lactated Ring 1,000 ML 100 ML IVCONT ×2 (10:41→21:06)
[2021-04-23 11:25] LABS: Glucose, Whole Blood 215 mg/dL (60-115)
[2021-04-23] MEDS: Heparin Sodium,Porcine 5,000 UNIT/ML VIAL 5000 UNIT SUBCUT ×2 (11:46→21:06)
[2021-04-23] MEDS: Insulin Lispro 100 UNIT/ML 3 ML VIAL SUBCUT ×3 (11:46→21:06)
[2021-04-23] MEDS: hydrALAZINE HCl 20 MG/ML VIAL 5 MG IVPUSH (13:30)
[2021-04-23 16:34] LABS: Glucose, Whole Blood 220 mg/dL (60-115)
[2021-04-23 20:24] LABS: Glucose, Whole Blood 194 mg/dL (60-115)
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
[2021-04-23 21:50] LABS: Anion Gap 12 (12-20); Carbon Dioxide 23 mmol/L (22-29); Chloride 116 mmol/L (96-108); Potassium 2.8 mmol/L (3.3-5.1); Sodium 148 mmol/L (135-145)
[2021-04-23] MEDS: KCl 20 mEq in 0.45% Sod 20 MEQ/1,000 ML IV.SOLN 80 MEQ IVCONT (23:23)
[2021-04-24] VITALS (19 sets, daily range): BP systolic 170–213; BP diastolic 51–98; PULSE 60–76; RESP 18–20; TEMP 36.2–36.8; O2SAT 95–99; BMI 34.2
[2021-04-24] MEDS: Metoprolol Tartrate 5 MG in 0.9 % Sodium Chloride 50 ML 220 MG IV (05:08)
[2021-04-24 06:23] LABS: Anion Gap 15 (12-20); Blood Urea Nitrogen 20 mg/dL (9-16); Calcium 8.2 mg/dL (8.4-10.2); Carbon Dioxide 20 mmol/L (22-29); Chloride 117 mmol/L (96-108); Creatinine Clr Calc Pharmacy 57.3; Estimated Glomerular Filt Rate > 60; Glucose Random 201 mg/dL (60-115); Potassium 3.2 mmol/L (3.3-5.1); Sodium 149 mmol/L (135-145)
[2021-04-24] MEDS: Albuterol/Iprat 2.5/0.5MG 3 ML AMPUL.NEB INHALE ×4 (07:20→19:15)
[2021-04-24 07:36] LABS: Glucose, Whole Blood 211 mg/dL (60-115)
[2021-04-24] MEDS: LORazepam 2 MG/ML VIAL 0.25 MG IVPUSH (08:54)
[2021-04-24] MEDS: hydrALAZINE HCl 20 MG/ML VIAL 5 MG IVPUSH (08:55)
[2021-04-24] MEDS: 0.9 % Sodium Chloride Flush 3 ML SYRINGE IVFLUSH ×2 (08:58→17:47)
[2021-04-24] MEDS: levoFLOXacin/D5W 250 MG/50 ML PIGGYBACK 50 MG IV (08:59)
--- NOTE | 2021-04-24 09:26 | MHC.SLORD ---
Speech Language Pathology Order Status: [employer]IP[employer] checked in with RN morning of 04/24. Patient continues to be inappropriate for PO trials at this time due to mental status. RN reported inability to follow commands, disorientation and indication of being in pain. Per chart review, patient exhibited difficulty swallowing and required suctioning on 04/21/21 and has been NPO since. Recommend continued NPO status with plan to re-evaluate tomorrow morning if appropriate.
--- NOTE | 2021-04-24 10:32 | PC.NURSE ---
Skin/wound assessment completed today. Patient has a midline abdominal surgical incision with steri strips, C/D/I. Patient also has fungal infection in bilateral groin-interdry placed in groin area. No other skin issues noted at this time.
[2021-04-24 11:42] LABS: Glucose, Whole Blood 213 mg/dL (60-115)
[2021-04-24] MEDS: Heparin Sodium,Porcine 5,000 UNIT/ML VIAL 5000 UNIT SUBCUT ×2 (11:51→13:15)
[2021-04-24] MEDS: Morphine Sulfate 2 MG/ML CARTRIDGE 0.5 MG IVPUSH (11:52)
[2021-04-24] MEDS: KCl 20 mEq in 0.45% Sod 20 MEQ/1,000 ML IV.SOLN 80 MEQ IVCONT (11:52)
--- NOTE | 2021-04-24 12:48 | PM.PNNEP ---
Subjective Subjective Date of Service: 04/24/21 Principal diagnosis: hyperna Interval history: Seen and examined, events noted Physical Exam Vital Signs: Vital Signs: Last Vital Signs Temp 97.2 F 04/24/21 11:10 Pulse 76 04/24/21 11:10 Resp 20 04/24/21 11:10 BP 213/91 H 04/24/21 11:51 Pulse Ox 97 04/24/21 11:10 Body Mass Index 34.2 Const: General: cooperative, awake and other (Patient with high respiratory rate) Nutritional Appearance: obese HENMT: Head: Yes normocephalic and Yes atraumatic Eyes: General: appearance normal, both eyes and all related structures Neck: Neck: Yes normal visual inspection, Yes trachea midline, Yes supple and Yes no JVD Chest: Chest palpation & inspection: normal inspection of the chest, normal palpation of entire chest wall and no tenderness Resp: Effort & Inspection: decreased respiratory effort Auscultation: crackles bilateral at the base and no wheezes Cardio: Jugular venous distension: no JVD Palpation: PMI not normal (Not palpable) Rate: regular rate and tachycardic Rhythm: regular rhythm Heart sounds: S1 normal heart sound present, S2 normal heart sound present, no click, no gallops and no murmurs GI: Palpation (GI): Soft to palpation Auscultation: normal bowel sounds Back/Spine/Pelvis: Thoracic/Lumbar Spine: thoracic and lumbar spine normal to inspection Skin: General skin exam: no rashes or lesions noted Neuro: General: no focal motor deficits Cranial nerves: Yes CN's II-XII intact bilaterally Speech: Abnormal speech present Extrem: General: Yes normal to inspection, Yes no clubbing, cyanosis or edema, Yes no pedal edema and Yes no calf tenderness Psych: Speech and movement: Normal speech and movement present Objective Data Labs CBC & Chem 7: 04/23/21 08:08 04/24/21 05:32 Labs: Laboratory Results - last 24 hr 04/23/21 04/23/21 04/23/21 16:31 19:49 21:21 Sodium 148 H Potassium 2.8 L Chloride 116 H Carbon Dioxide 23 Anion Gap 12 BUN Creatinine Estim Creat Clear Calc Estimated GFR POC Glucose 220 H 194 H Random Glucose Calcium 04/24/21 04/24/21 04/24/21 05:32 07:30 11:33 Sodium 149 H Potassium 3.2 L Chloride 117 H Carbon Dioxide 20 L Anion Gap 15 BUN 20 H Creatinine 0.81 Estim Creat Clear Calc 57.3 Estimated GFR > 60 POC Glucose 211 H 213 H Random Glucose 201 H Calcium 8.2 L Microbiology Microbiology Results: Microbiology 04/18/21 14:22 Blood - Venous Blood Culture - Final No growth after 5 days. 04/18/21 14:22 Blood - Venous Blood Culture - Final No growth after 5 days. 04/18/21 16:35 Urine Catheterized - Severino Catheter Urine Culture - Final Pseudomonas aeruginosa Procedures Date of Service Date of Service: 04/24/21 Assessment & Plan Assessment and plan (1) Encephalopathy: Status: Acute (2) Acute UTI: Status: Acute (3) CHF (congestive heart failure): Status: Acute (4) Hypernatremia: Status: Acute Assessment and Plan: 1. HyperNa: multifact with incr IWL and poor po intake and hyperglyceia causing osmotic diuresis; doubt CDi or NDI 2. AMS: multifact 3. HTN REC: cont IVF using hypotonic fluids w K replacement; add norvasc 5; track SNA and K and BPs will follow with team Time Spent With Patient Time: Total time spent is greater than 50% in coordination of care (as documented) at patient's floor/unit and/or counseling patient: Progress Note: Quality Stroke Does the patient have a stroke diagnosis?: No
[2021-04-24] MEDS: Metoprolol Tartrate 5 MG in 0.9 % Sodium Chloride 50 ML 100 MG IV (13:16)
[2021-04-24] MEDS: Fluconazole in NaCl,Iso-Osm 200 MG/100 ML PIGGYBACK 100 MG IV (13:18)
--- NOTE | 2021-04-24 14:59 | MHC.CM.PN ---
spke with mendoza larson [phone] ,cm for pt thru [facility] pt is [facility] where she will return possibly [facility] will authorize an amb transport let mendoza know when pt is dcd
[2021-04-24] MEDS: hydrALAZINE HCl 20 MG/ML VIAL 10 MG IVPUSH ×2 (15:15→18:26)
[2021-04-24 17:22] LABS: Glucose, Whole Blood 192 mg/dL (60-115)
[2021-04-24] MEDS: Morphine Sulfate 2 MG/ML CARTRIDGE 1 MG IVPUSH (17:48)
[2021-04-24 18:02] LABS: Sodium 147 mmol/L (135-145)
[2021-04-24] MEDS: Metoprolol Tartrate 5 MG in 0.9 % Sodium Chloride 50 ML 50 MG IV (18:25)
--- NOTE | 2021-04-24 18:28 | HO.PM.IMPN ---
Subjective Subjective Date of Service: 04/24/21 Interval History: Toxic metabolic encephalopathy, UTI, uncontrolled hypertension Review of Systems Patient is awake but does not answer any questions, makes inappropriate voices. Physical Exam Vital Signs: Vital Signs: Last Vital Signs Temp 98.3 F 04/24/21 17:46 Pulse 76 04/24/21 18:26 Resp 18 04/24/21 17:48 BP 203/51 H 04/24/21 18:26 Pulse Ox 96 04/24/21 17:46 Body Mass Index 34.2 Physical exam: ?Gen:confused. HEENT: sclera anicteric, moist mucus membranes. Neck: supple Lungs: slightly diminished at bases, intermittently tachypneic Heart: regular rate and rhythm, no murmurs Abd: soft, did not seems discomfortable on abd palpatation, non-distended Ext: no edema Skin: warm/well-perfused Neuro: awake, disoriented Psych: impaired insight Objective Data Current Medications Generic Name Dose Route Start Last Admin Trade Name Freq PRN Reason Stop Dose Admin Acetaminophen 650 mg 04/18/21 22:25 Acetaminophen Supp 650 Mg Supp.Rect HI Q6H PRN Pain, Mild (Pain Scale 1-3) Albuterol Sulfate 2.5 mg 04/20/21 17:37 Albuterol Sulfate (0.083%) 2.5 Mg/3 Ml Vial.Neb INHALE Q2H PRN shortness of breath/wheeze Albuterol/Ipratropium 3 ml 04/20/21 20:00 04/24/21 14:59 Albuterol/Iprat 2.5/0.5mg 3 Ml Ampul.Neb INHALE 3 ml RQ4H WHILE AWAKE YRIS Administration Amlodipine Besylate 5 mg 04/24/21 12:55 04/24/21 13:25 Amlodipine Besylate 5 Mg Tablet PO Not Given DAILY YRIS Protocol Clopidogrel Bisulfate 75 mg 04/19/21 09:00 04/24/21 08:56 Clopidogrel Bisulfate 75 Mg Tablet PO Not Given DAILY YRIS Dextrose 25 gm 04/21/21 10:28 Dextrose 50 % 25 Gm/50 Ml Vial IVPUSH Q15M PRN per Hypoglycemia Standing Ord. Protocol Glucose 15 gm 04/21/21 10:28 Glucose Gel 15 Gm Gel..Gram. PO Q15M PRN per Hypoglycemia Standing Ord. Protocol Heparin Sodium (Porcine) 5,000 unit 04/18/21 23:00 04/24/21 13:15 Heparin Sodium,Porcine 5,000 Unit/Ml Vial SUBCUT 5,000 unit Q12H YRIS Administration Hydralazine HCl 10 mg 04/24/21 17:03 04/24/21 15:15 Hydralazine Hcl 20 Mg/Ml Vial IVPUSH 10 mg Q4H PRN Administration SBP >180 Protocol Levofloxacin 250 mg in 50 mls @ 50 mls/hr 04/21/21 09:00 04/24/21 13:30 Levaquin IV Infused Q24H YRIS Infusion Metoprolol Tartrate 5 mg/ 55 mls @ 220 mls/hr 04/21/21 11:45 04/24/21 18:25 Sodium Chloride IV 50 mls/hr Q6H YRIS Administration Potassium Chloride/Sodium Chloride 20 meq in 1,000 mls @ 80 mls/hr 04/23/21 23:15 04/24/21 11:52 IVCONT 80 mls/hr .[id number] [facility] Administration Insulin Glargine 10 unit 04/19/21 21:00 04/23/21 21:07 Insulin Glargine,Hum.Rec.Anlog 100 Unit/Ml 10 Ml Vial SUBCUT Not Given BEDTIME [facility] Insulin Human Lispro 0 unit 04/21/21 11:30 04/24/21 17:47 Insulin Lispro 100 Unit/Ml 3 Ml Vial SUBCUT Not Given QIDACHS [facility] Protocol Losartan Potassium 50 mg 04/21/21 09:00 04/24/21 08:56 Losartan Potassium 50 Mg Tablet PO Not Given DAILY [facility] Protocol Morphine Sulfate 1 mg 04/24/21 17:01 04/24/21 17:48 Morphine Sulfate 2 Mg/Ml Cartridge IVPUSH 1 mg Q4H PRN Administration Pain, Mild (Pain Scale 1-3) Protocol Pharmacy Consult 1 each 04/18/21 18:26 Consult Rx Perform Med Rec MISCELLANE ONCE PRN Consult order Sertraline HCl 100 mg 04/20/21 21:00 04/23/21 21:15 Sertraline Hcl 100 Mg Tablet PO Not Given BEDTIME YRIS Sodium Chloride 3 ml 04/19/21 00:00 04/24/21 17:47 0.9 % Sodium Chloride Flush 3 Ml Syringe IVFLUSH 3 ml QSHIFT [facility] Administration Labs CBC & Chem 7: 04/23/21 08:08 04/24/21 17:34 Labs: Laboratory Results - last 24 hr 04/23/21 04/23/21 04/24/21 19:49 21:21 05:32 Anion Gap 12 15 Estim Creat Clear Calc 57.3 Estimated GFR > 60 POC Glucose 194 H Random Glucose 201 H Calcium 8.2 L 04/24/21 04/24/21 04/24/21 07:30 11:33 17:17 Anion Gap Estim Creat Clear Calc Estimated GFR POC Glucose 211 H 213 H 192 H Random Glucose Calcium Microbiology Microbiology Results: Microbiology 04/18/21 14:22 Blood Culture - Final Blood - Venous No growth after 5 days. 04/18/21 14:22 Blood Culture - Final Blood - Venous No growth after 5 days. Assessment and Plan (1) Hypernatremia: Status: Acute (2) Encephalopathy: Status: Acute (3) Acute UTI: Status: Acute Assessment and Plan: 80yo F with recent hemicolectomy due to ischemic colitis, prior CVA, HTN, DM2 admitted from SNF with lethargy 1. toxic/metabolic encephalopathy - suspect due to UTI, and possibly other causes,? 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 BIOFUELS PLANT MANAGER to follow closely. hold ativan 2. Pseudomonas aeurignosa UTI - changed ceftriaxone to levofloxacin d#5 monitor QTc- 3. tachypnea, intermittently - unclear cause.? CTA chest was limited by motion artifact but LE dopplers were negative.? Has small bibasilar pleural effusions and BNP has elevated, so was been diuressed but then sodium is going, -Pulmonary consult--possibly has mucus plug and may need intubation for better management. Daughter doesn't want that 4.acute/chronic HFpEF - TTE showed normal LV systolic function with impaired relaxation filling pattern with elevated filling pressures with mild aortic stenosis and mild mitral regurgitation without significant pulmonary hypertension.? per Cardiology not in CHF exacerbation, despite increaseing BNP.? Stop Lasix d/t increaseing sodium and BUN 5. HTN - changed metoprolol PO->IV and and prn IV hydralazine adjusted doses to 10 mg iv if does not respond will adjust hydralazine dosing further .? holding losartan until can swallow pills safely. - oral meds when able to swallow safely; Nephrology to help with management 6.Hypernatremia-likely from Lasix, Nephrology consult, hold Lasix. Repeat labs today-sodum seems slowly improving to 147 on D5+LR moniter bmp 7. lactic acidosis - resolved 8.DM2 - basal glargine + correction-dose lispro--Monitor sugars closely while NPO 9. mood disorder - sertraline 10. hx CVA - continue clopidogrel dispo - eventual return to SNF Above management discussed with patient's family in detail with her daughter tess- she understands and she wants to continue conservative management for now, in case patient condition worsen she is considering comfort measures in that point, staff is aware to inform the patient family if patient condition worsens. Quality Stroke Does the patient have a stroke diagnosis?: No VTE Prior VTE?: No VTE Risk Level:: Medical - moderate - high VTE Device Contraindication: Treatment Not Indicated VTE Drug Contraindication: N/A - Med Ordered
[2021-04-24 20:15] LABS: Glucose, Whole Blood 204 mg/dL (60-115)
[2021-04-25] VITALS (26 sets, daily range): BP systolic 162–226; BP diastolic 60–96; PULSE 62–78; RESP 15–20; TEMP 36.6–37.2; O2SAT 93–100; BMI 31.8
[2021-04-25] MEDS: Metoprolol Tartrate 5 MG in 0.9 % Sodium Chloride 50 ML 220 MG IV ×4 (00:03→22:52)
[2021-04-25] MEDS: Morphine Sulfate 2 MG/ML CARTRIDGE 1 MG IVPUSH ×3 (00:45→10:08)
[2021-04-25] MEDS: KCl 20 mEq in 0.45% Sod 20 MEQ/1,000 ML IV.SOLN 80 MEQ IVCONT (04:49)
[2021-04-25 07:04] LABS: Anion Gap 15 (12-20); Blood Urea Nitrogen 25 mg/dL (9-16); Calcium 8.3 mg/dL (8.4-10.2); Carbon Dioxide 19 mmol/L (22-29); Chloride 117 mmol/L (96-108); Creatinine Clr Calc Pharmacy 62.8; Estimated Glomerular Filt Rate > 60; Glucose Random 232 mg/dL (60-115); Potassium 3.6 mmol/L (3.3-5.1); Sodium 147 mmol/L (135-145)
[2021-04-25 07:25] LABS: Glucose, Whole Blood 224 mg/dL (60-115)
[2021-04-25] MEDS: Albuterol/Iprat 2.5/0.5MG 3 ML AMPUL.NEB INHALE ×4 (07:27→20:59)
--- NOTE | 2021-04-25 07:28 | PC.NURSE ---
0000 vitals; bp elevated 207/76, hr 72. Scheduled IV metoprolol 5 mg administered. BP rechecked came down to 162/65, hr 64. Hospitalist, Dr. Jamil Vazquez made aware via [employer].
[2021-04-25] MEDS: levoFLOXacin/D5W 250 MG/50 ML PIGGYBACK 50 MG IV (08:57)
[2021-04-25] MEDS: 0.9 % Sodium Chloride Flush 3 ML SYRINGE IVFLUSH ×4 (08:59→22:54)
[2021-04-25] MEDS: hydrALAZINE HCl 20 MG/ML VIAL 10 MG IVPUSH ×2 (09:01→16:20)
[2021-04-25] MEDS: Lactated Ringers 500 ML 70 ML IV (09:03)
--- NOTE | 2021-04-25 09:49 | MHC.SLORD ---
Speech Language Pathology Order Status: SUPPLY CHAIN DEVELOPMENT MANAGER checked in with RN morning of 04/25. Patient was not observed to be alert but was seen vocalizing in bed, unresponsive to commands. Patient continues to be inappropriate for PO trials at this time due to mental status. RN reported continued inability to follow commands and disorientation. Per chart review, patient exhibited difficulty swallowing and required suctioning on 04/21/21 and has been NPO since. Recommend continued NPO status with plan to re-evaluate tomorrow morning if appropriate.
[2021-04-25 11:15] LABS: Glucose, Whole Blood 215 mg/dL (60-115)
[2021-04-25] MEDS: Heparin Sodium,Porcine 5,000 UNIT/ML VIAL 5000 UNIT SUBCUT ×2 (13:05→22:53)
[2021-04-25] MEDS: bisacodyL 10 MG SUPP.RECT PR (13:09)
--- NOTE | 2021-04-25 14:54 | HO.PM.IMPN ---
Subjective Subjective Date of Service: 04/25/21 Interval History: Toxic metabolic encephalopathy, UTI, uncontrolled hypertension Review of Systems seems awake slightly , intermittent agitation, wandering has some at somatic pain sensation since the itching any body part patient start get agitated. Physical Exam Vital Signs: Vital Signs: Last Vital Signs Temp 99.0 F 04/25/21 11:07 Pulse 62 04/25/21 11:07 Resp 18 04/25/21 11:07 BP 199/78 H 04/25/21 13:04 Pulse Ox 100 04/25/21 11:07 Body Mass Index 31.8 ?Gen:confused. HEENT: sclera anicteric, moist mucus membranes. Neck: supple Lungs: slightly diminished at bases, intermittently tachypneic Heart: regular rate and rhythm, no murmurs Abd: soft, did not seems discomfortable on abd palpatation, non-distended Ext: no edema Skin: warm/well-perfused Neuro: awake, disoriented Psych: impaired insight ? Objective Data Current Medications Generic Name Dose Route Start Last Admin Trade Name Hunterq PRN Reason Stop Dose Admin Acetaminophen 650 mg 04/18/21 22:25 Acetaminophen Supp 650 Mg Supp.Rect NJ Q6H PRN Pain, Mild (Pain Scale 1-3) Albuterol Sulfate 2.5 mg 04/20/21 17:37 Albuterol Sulfate (0.083%) 2.5 Mg/3 Ml Vial.Neb INHALE Q2H PRN shortness of breath/wheeze Albuterol/Ipratropium 3 ml 04/20/21 20:00 04/25/21 11:01 Albuterol/Iprat 2.5/0.5mg 3 Ml Ampul.Neb INHALE 3 ml RQ4H WHILE AWAKE YRIS Administration Amlodipine Besylate 5 mg 04/24/21 12:55 04/25/21 09:04 Amlodipine Besylate 5 Mg Tablet PO Not Given DAILY [facility] Protocol Bisacodyl 10 mg 04/25/21 12:18 04/25/21 13:09 Bisacodyl 10 Mg Supp.Rect NJ 10 mg BEDTIME PRN Administration Constipation Clonidine 0.1 mg 04/29/21 09:00 Clonidine 0.1 Mg Patch.Tdwk TRANSDERMA Crawford@0900 [facility] Protocol Clopidogrel Bisulfate 75 mg 04/19/21 09:00 04/25/21 09:04 Clopidogrel Bisulfate 75 Mg Tablet PO Not Given DAILY YRIS Dextrose 25 gm 04/21/21 10:28 Dextrose 50 % 25 Gm/50 Ml Vial IVPUSH Q15M PRN per Hypoglycemia Standing Ord. Protocol Glucose 15 gm 04/21/21 10:28 Glucose Gel 15 Gm Gel..Gram. PO Q15M PRN per Hypoglycemia Standing Ord. Protocol Heparin Sodium (Porcine) 5,000 unit 04/18/21 23:00 04/25/21 13:05 Heparin Sodium,Porcine 5,000 Unit/Ml Vial SUBCUT 5,000 unit Q12H YRIS Administration Hydralazine HCl 10 mg 04/24/21 17:03 04/25/21 09:01 Hydralazine Hcl 20 Mg/Ml Vial IVPUSH 10 mg Q4H PRN Administration SBP >180 Protocol Levofloxacin 250 mg in 50 mls @ 50 mls/hr 04/21/21 09:00 04/25/21 10:14 Levaquin IV Infused Q24H YRIS Infusion Metoprolol Tartrate 5 mg/ 55 mls @ 220 mls/hr 04/21/21 11:45 04/25/21 13:04 Sodium Chloride IV 220 mls/hr Q6H YRIS Administration Lactated Ringer's 500 mls @ 70 mls/hr 04/25/21 08:15 04/25/21 09:03 Lr IV 04/25/21 15:23 70 mls/hr .Q7H9M YRIS Administration Insulin Glargine 10 unit 04/19/21 21:00 04/24/21 21:42 Insulin Glargine,Hum.Rec.Anlog 100 Unit/Ml 10 Ml Vial SUBCUT Not Given BEDTIME [facility] Insulin Human Lispro 0 unit 04/21/21 11:30 04/25/21 13:06 Insulin Lispro 100 Unit/Ml 3 Ml Vial SUBCUT Not Given QIDACHS [facility] Protocol Losartan Potassium 50 mg 04/21/21 09:00 04/25/21 08:58 Losartan Potassium 50 Mg Tablet PO Not Given DAILY [facility] Protocol Pharmacy Consult 1 each 04/18/21 18:26 Consult Rx Perform Med Rec MISCELLANE ONCE PRN Consult order Sertraline HCl 100 mg 04/20/21 21:00 04/24/21 21:43 Sertraline Hcl 100 Mg Tablet PO Not Given BEDTIME [facility] Sodium Chloride 3 ml 04/19/21 00:00 04/25/21 08:59 0.9 % Sodium Chloride Flush 3 Ml Syringe IVFLUSH 3 ml QSHIFT YRIS Administration Labs CBC & Chem 7: 04/23/21 08:08 04/25/21 05:43 Labs: Laboratory Results - last 24 hr 04/24/21 04/24/21 04/25/21 17:17 20:11 05:43 Anion Gap 15 Estim Creat Clear Calc 62.8 Estimated GFR > 60 POC Glucose 192 H 204 H Random Glucose 232 H Calcium 8.3 L 04/25/21 04/25/21 07:21 11:09 Anion Gap Estim Creat Clear Calc Estimated GFR POC Glucose 224 H 215 H Random Glucose Calcium Assessment and Plan (1) Hypernatremia: Status: Acute (2) Altered mental status: Status: Acute Assessment and Plan: 80yo F with recent hemicolectomy due to ischemic colitis, prior CVA, HTN, DM2 admitted from SNF with lethargy 1. toxic/metabolic encephalopathy - suspect due to UTI, and possibly other causes,? 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 FIRE EXTINGUISHER INSTALLER to follow closely. hold ativan 2. Pseudomonas aeurignosa UTI - changed ceftriaxone to levofloxacin d#6 monitor QTc 3. tachypnea, intermittently - unclear cause.? CTA chest was limited by motion artifact but LE dopplers were negative.? Has small bibasilar pleural effusions and BNP has elevated, so was been diuressed but then sodium is going, -Pulmonary consult--possibly has mucus plug and may need intubation for better management. Daughter doesn't want that 4.acute/chronic HFpEF - TTE showed normal LV systolic function with impaired relaxation filling pattern with elevated filling pressures with mild aortic stenosis and mild mitral regurgitation without significant pulmonary hypertension.? per Cardiology not in CHF exacerbation, despite increaseing BNP.? Stop Lasix d/t increaseing sodium and BUN 5. HTN - changed metoprolol PO->IV and and prn IV hydralazine adjusted doses to 10 mg iv if does not respond will adjust hydralazine dosing further .?added clonidine patch Nephrology to help with management 6.Hypernatremia-likely from Lasix, Nephrology consult, hold Lasix. ?Repeat labs? today-sodum seems slowly improving to 147. switched to LR moniter bmp 7. lactic acidosis - resolved 8.DM2 - basal glargine + correction-dose lispro--Monitor sugars closely while NPO 9. mood disorder - sertraline 10. hx CVA - continue clopidogrel ?dispo - eventual return to SNF Above management discussed with patient's family in detail with her daughter tess- she understands and she wants to continue conservative management for now, in case patient condition worsen she is considering comfort measures in that point, staff is aware to inform the patient family if patient condition worsens Quality Stroke Does the patient have a stroke diagnosis?: No VTE Prior VTE?: No VTE Risk Level:: Medical - moderate - high VTE Device Contraindication: Treatment Not Indicated VTE Drug Contraindication: N/A - Med Ordered
--- NOTE | 2021-04-25 15:27 | MHC.CM.PN ---
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
[2021-04-25 16:20] LABS: Glucose, Whole Blood 189 mg/dL (60-115)
[2021-04-25] MEDS: Fluconazole in NaCl,Iso-Osm 100 MG in Container,Empty 0 ML 50 MG IV (17:59)
[2021-04-25] MEDS: Metoprolol Tartrate 5 MG in 0.9 % Sodium Chloride 50 ML 100 MG IV (18:07)
[2021-04-25 20:24] LABS: Glucose, Whole Blood 207 mg/dL (60-115)
--- NOTE | 2021-04-25 21:13 | PM.PNNEP ---
Subjective Subjective Date of Service: 04/25/21 Principal diagnosis: hyperna Interval history: seen and examined, events noted Physical Exam Vital Signs: Vital Signs: Last Vital Signs Temp 97.8 F 04/25/21 19:27 Pulse 63 04/25/21 21:02 Resp 15 04/25/21 19:27 BP 208/74 H 04/25/21 19:27 Pulse Ox 94 04/25/21 19:27 Body Mass Index 31.8 Const: General: cooperative, awake and other (Patient with high respiratory rate) Nutritional Appearance: obese HENMT: Head: Yes normocephalic and Yes atraumatic Eyes: General: appearance normal, both eyes and all related structures Neck: Neck: Yes normal visual inspection, Yes trachea midline, Yes supple and Yes no JVD Chest: Chest palpation & inspection: normal inspection of the chest, normal palpation of entire chest wall and no tenderness Resp: Effort & Inspection: decreased respiratory effort Auscultation: crackles bilateral at the base and no wheezes Cardio: Jugular venous distension: no JVD Palpation: PMI not normal (Not palpable) Rate: regular rate and tachycardic Rhythm: regular rhythm Heart sounds: S1 normal heart sound present, S2 normal heart sound present, no click, no gallops and no murmurs GI: Palpation (GI): Soft to palpation Auscultation: normal bowel sounds Back/Spine/Pelvis: Thoracic/Lumbar Spine: thoracic and lumbar spine normal to inspection Skin: General skin exam: no rashes or lesions noted Neuro: General: no focal motor deficits Cranial nerves: Yes CN's II-XII intact bilaterally Speech: Abnormal speech present Extrem: General: Yes normal to inspection, Yes no clubbing, cyanosis or edema, Yes no pedal edema and Yes no calf tenderness Psych: Speech and movement: Normal speech and movement present Objective Data Labs CBC & Chem 7: 04/23/21 08:08 04/25/21 05:43 Labs: Laboratory Results - last 24 hr 04/25/21 04/25/21 04/25/21 05:43 07:21 11:09 Sodium 147 H Potassium 3.6 Chloride 117 H Carbon Dioxide 19 L Anion Gap 15 BUN 25 H Creatinine 0.75 Estim Creat Clear Calc 62.8 Estimated GFR > 60 POC Glucose 224 H 215 H Random Glucose 232 H Calcium 8.3 L 04/25/21 04/25/21 16:17 20:19 Sodium Potassium Chloride Carbon Dioxide Anion Gap BUN Creatinine Estim Creat Clear Calc Estimated GFR POC Glucose 189 H 207 H Random Glucose Calcium Microbiology Microbiology Results: Microbiology 04/18/21 14:22 Blood - Venous Blood Culture - Final No growth after 5 days. 04/18/21 14:22 Blood - Venous Blood Culture - Final No growth after 5 days. 04/18/21 16:35 Urine Catheterized - Severino Catheter Urine Culture - Final Pseudomonas aeruginosa Procedures Date of Service Date of Service: 04/25/21 Assessment & Plan Assessment and plan (1) Encephalopathy: Status: Acute (2) Acute UTI: Status: Acute (3) CHF (congestive heart failure): Status: Acute (4) Hypernatremia: Status: Acute Assessment and Plan: 1. HyperNa: multifact with incr IWL and poor po intake and hyperglyceia causing osmotic diuresis; doubt CDi or NDI 2. AMS: multifact 3. HTN REC: cont IVF using hypotonic fluids w K replacement; add norvasc 5; add clonidine patch ( ques taking PO)track SNA and K and BPs will follow with team Time Spent With Patient Time: Total time spent is greater than 50% in coordination of care (as documented) at patient's floor/unit and/or counseling patient: Progress Note: Quality Stroke Does the patient have a stroke diagnosis?: No
[2021-04-25] MEDS: cloNIDine 0.2 MG PATCH.TDWK TRANSDERMA (22:53)
[2021-04-26] VITALS (23 sets, daily range): BP systolic 160–190; BP diastolic 62–87; PULSE 61–80; RESP 18–22; TEMP 36.1–36.7; O2SAT 91–97; BMI 30.8
[2021-04-26] MEDS: hydrALAZINE HCl 20 MG/ML VIAL 10 MG IVPUSH ×2 (04:04→20:34)
--- NOTE | 2021-04-26 04:14 | PC.NURSE ---
pt has become more alert over night. She was able to mumble her name to me two separate times, but is still unable to follow commands totally. Opens eyes to name, and tracks speaker.
[2021-04-26] MEDS: Metoprolol Tartrate 5 MG in 0.9 % Sodium Chloride 50 ML 220 MG IV ×4 (05:32→23:45)
[2021-04-26 06:38] LABS: Hematocrit 33.1 % (37-47); Hemoglobin 10.3 g/dl (12.0-16.0); Mean Corpuscular HGB Conc 31.1 g/dl (31.0-35.0); Mean Corpuscular Hemoglobin 30.7 pg (27.0-33.0); Mean Corpuscular Volume 98.8 fL (80-98); Mean Platelet Volume 9.4 fL (9.4-12.3); Platelet Count 296 X10*3/uL (160-400); Red Blood Count 3.35 X10*6/uL (4.20-5.50); Red Cell Distribution Width 15.5 % (11.0-16.0); White Blood Count 12.3 X10*3/uL (4.8-10.8)
[2021-04-26 07:14] LABS: Glucose, Whole Blood 210 mg/dL (60-115)
[2021-04-26 07:15] LABS: Anion Gap 14 (12-20); Blood Urea Nitrogen 17 mg/dL (9-16); Calcium 8.3 mg/dL (8.4-10.2); Carbon Dioxide 22 mmol/L (22-29); Chloride 116 mmol/L (96-108); Creatinine Clr Calc Pharmacy 61.9; Estimated Glomerular Filt Rate > 60; Glucose Random 238 mg/dL (60-115); Potassium 3.1 mmol/L (3.3-5.1); Sodium 149 mmol/L (135-145)
[2021-04-26] MEDS: levoFLOXacin/D5W 250 MG/50 ML PIGGYBACK 50 MG IV (08:01)
[2021-04-26] MEDS: 0.9 % Sodium Chloride Flush 3 ML SYRINGE IVFLUSH ×3 (08:02→20:34)
[2021-04-26] MEDS: Albuterol/Iprat 2.5/0.5MG 3 ML AMPUL.NEB INHALE ×4 (08:05→19:36)
--- NOTE | 2021-04-26 10:24 | MHC.CLN ---
F/U PT WITH INCREASED NUTRITION RISK R/T LOW BARRERA SCORE AND DAY 5 OF NPO MEDICAL INTERPRETER EVAL ON 04/20 REC PUREED WITH PUDDING THICK LIQUIDS, HOWEVER PT REQUIRED SUCTIONING 04/21 FOR SWALLOWING DIFFICULTIES AND HAS BEEN NPO SINCE 04/21 MEDICAL INTERPRETER NOTED 04/25 PT IS INAPPROPRIATE FOR PO TRIALS CM NOTED 04/25 PT POSSIBLE HEAVY EQUIPMENT SERVICE MANAGER STATUS FOLLOWING WITH TEAM AND WILL PROVIDE SUPPORT NEEDED CONSULT RD IF PPN NEEDED
--- NOTE | 2021-04-26 10:56 | MHC.SLORD ---
Speech Language Pathology Order Status: DIGITAL MARKETING ASSOCIATE spoke with RN this morning. Patient is still not appropriate for PO trials due to mental status. Patient is moaning and not following directions. Patient was initially evaluated on 04/20/21 and was recommended single consistency pureed solids/pudding thick liquids. Patient did not tolerate PO, exhibited difficulty swallowing, and required suctioning. She was subsequently made NPO the next day on 04/21/21. Patient has been NPO since 04/21/21 due to mental status. DIGITAL MARKETING ASSOCIATE attempted to evaluated x4 times but patient has not been appropriate. Please re-refer when mental status has improved and patient is appropriate for dysphagia evaluation.
[2021-04-26 11:27] LABS: Glucose, Whole Blood 210 mg/dL (60-115)
[2021-04-26] MEDS: Heparin Sodium,Porcine 5,000 UNIT/ML VIAL 5000 UNIT SUBCUT ×2 (11:52→23:46)
[2021-04-26] MEDS: KCl 20 mEq in 0.45% Sod 20 MEQ/1,000 ML IV.SOLN 80 MEQ IVCONT ×2 (12:26→23:46)
--- NOTE | 2021-04-26 13:13 | MHC.CM.PN ---
SARAH SPOKE WITH THE NURSE , SPRING, AT [facility] WHO REPORTS AT BASELINE THE PT IS ALERT AND ORIENTED X3. SHE REPORTS THE PT IS AN ASSIST TO TRANSFER DUE TO HER LEG BRACE AND THAT SHE LIKES TO DO WORD SEARCH PUZZLES AND TIME HERSELF. SPRING REPORTS THE PT WOULD MOLD WORKER HER OWN DIET TO ENSURE HER SUGARS REMAINED LOW AND WOULD FEED HERSELF.
[2021-04-26 16:09] LABS: Glucose, Whole Blood 195 mg/dL (60-115)
--- NOTE | 2021-04-26 17:47 | HO.PM.IMPN ---
Subjective Subjective Date of Service: 04/26/21 Interval History: Patient responsive only to sternal rub Review of Systems Unable to obtain detailed review of system as above Physical Exam Vital Signs: Vital Signs: Last Vital Signs Temp 98.1 F 04/26/21 15:18 Pulse 65 04/26/21 15:58 Resp 22 H 04/26/21 15:18 BP 168/70 H 04/26/21 15:18 Pulse Ox 96 04/26/21 15:18 Body Mass Index 30.8 General no acute distress. Neck no JVD. CVS regular rate rhythm, Respiratory lungs clear to auscultation, no respiratory distress Gastrointestinal abdomen soft, nontender, bowel sounds audible Extremities no edema Neuro unresponsive Skin no rash Objective Data Current Medications Generic Name Dose Route Start Last Admin Trade Name Freq PRN Reason Stop Dose Admin Acetaminophen 650 mg 04/18/21 22:25 Acetaminophen Supp 650 Mg Supp.Rect NH Q6H PRN Pain, Mild (Pain Scale 1-3) Albuterol Sulfate 2.5 mg 04/20/21 17:37 Albuterol Sulfate (0.083%) 2.5 Mg/3 Ml Vial.Neb INHALE Q2H PRN shortness of breath/wheeze Albuterol/Ipratropium 3 ml 04/20/21 20:00 04/26/21 15:55 Albuterol/Iprat 2.5/0.5mg 3 Ml Ampul.Neb INHALE 3 ml RQ4H WHILE AWAKE YRIS Administration Amlodipine Besylate 5 mg 04/24/21 12:55 04/26/21 07:57 Amlodipine Besylate 5 Mg Tablet PO Not Given DAILY [facility] Protocol Bisacodyl 10 mg 04/25/21 12:18 04/25/21 13:09 Bisacodyl 10 Mg Supp.Rect NH 10 mg BEDTIME PRN Administration Constipation Clonidine 0.2 mg 04/25/21 21:20 04/25/21 22:53 Clonidine 0.2 Mg Patch.Tdwk TRANSDERMA 0.2 mg We@0900 YRIS Administration Protocol Clopidogrel Bisulfate 75 mg 04/19/21 09:00 04/26/21 07:57 Clopidogrel Bisulfate 75 Mg Tablet PO Not Given DAILY YRIS Dextrose 25 gm 04/21/21 10:28 Dextrose 50 % 25 Gm/50 Ml Vial IVPUSH Q15M PRN per Hypoglycemia Standing Ord. Protocol Glucose 15 gm 04/21/21 10:28 Glucose Gel 15 Gm Gel..Gram. PO Q15M PRN per Hypoglycemia Standing Ord. Protocol Heparin Sodium (Porcine) 5,000 unit 04/18/21 23:00 04/26/21 11:52 Heparin Sodium,Porcine 5,000 Unit/Ml Vial SUBCUT 5,000 unit Q12H YRIS Administration Hydralazine HCl 10 mg 04/24/21 17:03 04/26/21 04:04 Hydralazine Hcl 20 Mg/Ml Vial IVPUSH 10 mg Q4H PRN Administration SBP >180 Protocol Levofloxacin 250 mg in 50 mls @ 50 mls/hr 04/21/21 09:00 04/26/21 09:51 Levaquin IV Infused Q24H YRIS Infusion Metoprolol Tartrate 5 mg/ 55 mls @ 220 mls/hr 04/21/21 11:45 04/26/21 12:36 Sodium Chloride IV Infused Q6H YRIS Infusion Fluconazole 100 mg/ IV 50 mls @ 50 mls/hr 04/25/21 18:00 04/25/21 19:36 Miscellaneous Supplies IV Infused Q24H YRIS Infusion Potassium Chloride/Sodium Chloride 20 meq in 1,000 mls @ 80 mls/hr 04/26/21 12:15 04/26/21 12:26 IVCONT 80 mls/hr .[id number] YRIS Administration Insulin Glargine 10 unit 04/19/21 21:00 04/25/21 20:07 Insulin Glargine,Hum.Rec.Anlog 100 Unit/Ml 10 Ml Vial SUBCUT Not Given BEDTIME [facility] Insulin Human Lispro 0 unit 04/21/21 11:30 04/26/21 16:21 Insulin Lispro 100 Unit/Ml 3 Ml Vial SUBCUT Not Given QIDACHS [facility] Protocol Losartan Potassium 50 mg 04/21/21 09:00 04/26/21 07:57 Losartan Potassium 50 Mg Tablet PO Not Given DAILY [facility] Protocol Pharmacy Consult 1 each 04/18/21 18:26 Consult Rx Perform Med Rec MISCELLANE ONCE PRN Consult order Sertraline HCl 100 mg 04/20/21 21:00 04/25/21 20:08 Sertraline Hcl 100 Mg Tablet PO Not Given BEDTIME [facility] Sodium Chloride 3 ml 04/19/21 00:00 04/26/21 08:02 0.9 % Sodium Chloride Flush 3 Ml Syringe IVFLUSH 3 ml QSHIFT YRIS Administration Labs CBC & Chem 7: 04/26/21 05:41 04/26/21 05:41 Labs: Laboratory Results - last 24 hr 04/25/21 04/26/21 04/26/21 20:19 05:41 05:41 MCV 98.8 H MCH 30.7 MCHC 31.1 RDW 15.5 Plt Count 296 MPV 9.4 Absolute Nucleated RBC 0.000 Nucleated RBC % (auto) 0.0 Anion Gap 14 Estim Creat Clear Calc 61.9 Estimated GFR > 60 POC Glucose 207 H Random Glucose 238 H Calcium 8.3 L 04/26/21 04/26/21 04/26/21 07:08 11:20 16:05 MCV MCH MCHC RDW Plt Count MPV Absolute Nucleated RBC Nucleated RBC % (auto) Anion Gap Estim Creat Clear Calc Estimated GFR POC Glucose 210 H 210 H 195 H Random Glucose Calcium Assessment and Plan (1) Hypernatremia: Status: Acute (2) Encephalopathy: Status: Acute (3) Acute UTI: Status: Acute Assessment and Plan: 80yo F with recent hemicolectomy due to ischemic colitis, prior CVA, HTN, DM2 admitted from SNF with lethargy 1. toxic/metabolic encephalopathy in setting of dementia brain CT from showing encephalomaclacia, no acute abnormality multifactorial due to UTI, hypernatremia, patient NPO due to lethargy will hold sedating medication persistently lethargic/minimally responsive no change in mental status in last several days, Consult neurology and will discuss goal of care with family 2. Pseudomonas aeurignosa UTI - continue levofloxacin d#7, stable QTC, will consult ID 3. tachypnea, improved 4.acute/chronic HFpEF per Cardiology not in CHF exacerbation - TTE showed normal LV systolic function with impaired relaxation filling pattern with elevated filling pressures with mild aortic stenosis and mild mitral regurgitation without significant pulmonary hypertension.? Initially treated with Lasix but held due to worsening renal function. 5. HTN - BP remains elevated, continue IV metoprolol and clonidine 0.2 mg patch q.week, continue as needed IV hydralazine Will increase dose of clonidine patch BP remains elevated, case discussed with Dr. Sainz 6.Hypernatremia-likely from poor by mouth intake and use of Lasix will treat with have normal saline and replace potassium monitor BMP 7. lactic acidosis - resolved 8.DM2 - blood sugar around 200, since patient NPO Lantus is on hold continue insulin sliding scale 9. mood disorder - sertraline on hold since patient NPO 10. hx CVA - clopidogrel on hold since patient NPO Quality Stroke Does the patient have a stroke diagnosis?: No VTE Prior VTE?: No VTE Risk Level:: Medical - moderate - high VTE Device Contraindication: Treatment Not Indicated VTE Drug Contraindication: N/A - Med Ordered
[2021-04-26] MEDS: Fluconazole in NaCl,Iso-Osm 100 MG in Container,Empty 0 ML 50 MG IV (18:03)
--- NOTE | 2021-04-26 20:20 | PM.PNNEP ---
Subjective Subjective Date of Service: 04/26/21 Principal diagnosis: hyperna Interval history: Patient responsive only to sternal rub Physical Exam Vital Signs: Vital Signs: Last Vital Signs Temp 97.4 F 04/26/21 19:54 Pulse 70 04/26/21 19:54 Resp 22 H 04/26/21 19:54 BP 180/78 H 04/26/21 19:54 Pulse Ox 93 04/26/21 19:54 Body Mass Index 30.8 Const: General: cooperative, awake and other (Patient with high respiratory rate) Nutritional Appearance: obese HENMT: Head: Yes normocephalic and Yes atraumatic Eyes: General: appearance normal, both eyes and all related structures Neck: Neck: Yes normal visual inspection, Yes trachea midline, Yes supple and Yes no JVD Chest: Chest palpation & inspection: normal inspection of the chest, normal palpation of entire chest wall and no tenderness Resp: Effort & Inspection: decreased respiratory effort Auscultation: crackles bilateral at the base and no wheezes Cardio: Jugular venous distension: no JVD Palpation: PMI not normal (Not palpable) Rate: regular rate and tachycardic Rhythm: regular rhythm Heart sounds: S1 normal heart sound present, S2 normal heart sound present, no click, no gallops and no murmurs GI: Palpation (GI): Soft to palpation Auscultation: normal bowel sounds Back/Spine/Pelvis: Thoracic/Lumbar Spine: thoracic and lumbar spine normal to inspection Skin: General skin exam: no rashes or lesions noted Neuro: General: no focal motor deficits Cranial nerves: Yes CN's II-XII intact bilaterally Speech: Abnormal speech present Extrem: General: Yes normal to inspection, Yes no clubbing, cyanosis or edema, Yes no pedal edema and Yes no calf tenderness Psych: Speech and movement: Normal speech and movement present Objective Data Labs CBC & Chem 7: 04/26/21 05:41 04/26/21 05:41 Labs: Laboratory Results - last 24 hr 04/25/21 04/26/21 04/26/21 20:19 05:41 05:41 WBC 12.3 H RBC 3.35 L Hgb 10.3 L Hct 33.1 L MCV 98.8 H MCH 30.7 MCHC 31.1 RDW 15.5 Plt Count 296 MPV 9.4 Absolute Nucleated RBC 0.000 Nucleated RBC % (auto) 0.0 Sodium 149 H Potassium 3.1 L Chloride 116 H Carbon Dioxide 22 Anion Gap 14 BUN 17 H Creatinine 0.75 Estim Creat Clear Calc 61.9 Estimated GFR > 60 POC Glucose 207 H Random Glucose 238 H Calcium 8.3 L 04/26/21 04/26/21 04/26/21 07:08 11:20 16:05 WBC RBC Hgb Hct MCV MCH MCHC RDW Plt Count MPV Absolute Nucleated RBC Nucleated RBC % (auto) Sodium Potassium Chloride Carbon Dioxide Anion Gap BUN Creatinine Estim Creat Clear Calc Estimated GFR POC Glucose 210 H 210 H 195 H Random Glucose Calcium Microbiology Microbiology Results: Microbiology 04/18/21 14:22 Blood - Venous Blood Culture - Final No growth after 5 days. 04/18/21 14:22 Blood - Venous Blood Culture - Final No growth after 5 days. 04/18/21 16:35 Urine Catheterized - Severino Catheter Urine Culture - Final Pseudomonas aeruginosa Procedures Date of Service Date of Service: 04/26/21 Assessment & Plan Assessment and plan (1) Encephalopathy: Status: Acute (2) Acute UTI: Status: Acute (3) CHF (congestive heart failure): Status: Acute (4) Hypernatremia: Status: Acute Assessment and Plan: 1. HyperNa: multifact with incr IWL and poor po intake and hyperglyceia causing osmotic diuresis; doubt CDi or NDI 2. AMS: multifact 3. HTN REC: change ivf back to hypotonic fluids w K replacement; add norvasc 5; add clonidine patch ( ques taking PO)track SNA and K and BPs will follow with team Time Spent With Patient Time: Total time spent is greater than 50% in coordination of care (as documented) at patient's floor/unit and/or counseling patient: Progress Note: Quality Stroke Does the patient have a stroke diagnosis?: No
[2021-04-26 21:01] LABS: Glucose, Whole Blood 218 mg/dL (60-115)
[2021-04-27] VITALS (13 sets, daily range): BP systolic 142–210; BP diastolic 56–76; PULSE 64–80; RESP 16–24; TEMP 36.3–36.8; O2SAT 96–99; BMI 31.4
[2021-04-27] MEDS: Metoprolol Tartrate 5 MG in 0.9 % Sodium Chloride 50 ML 220 MG IV ×2 (05:41→11:34)
[2021-04-27 06:27] LABS: MANUAL DIFF FLAG NO
[2021-04-27 06:37] LABS: Basophils Percent Auto 0.1 % (0-2); Hematocrit 32.8 % (37-47); Hemoglobin 10.4 g/dl (12.0-16.0); Imm Gran Abs Auto 0.09 X10*3/uL (0.00-0.03); Imm Gran Pct Auto 0.9 % (0.0-0.4); Lymphocytes Absolute Auto 1.4 X10*3/uL (1.2-4.9); Lymphocytes Percent Auto 13.4 % (20-40); Mean Corpuscular HGB Conc 31.7 g/dl (31.0-35.0); Mean Corpuscular Hemoglobin 30.7 pg (27.0-33.0); Mean Corpuscular Volume 96.8 fL (80-98); Mean Platelet Volume 9.5 fL (9.4-12.3); Monocytes Absolute Auto 0.6 X10*3/uL (0.1-1.2); Monocytes Percent Auto 5.5 % (2-11); Neutrophils Absolute Auto 8.3 X10*3/uL (2.0-8.3); Neutrophils Percent Auto 80.1 % (45-73); Platelet Count 269 X10*3/uL (160-400); Red Blood Count 3.39 X10*6/uL (4.20-5.50); Red Cell Distribution Width 15.6 % (11.0-16.0); White Blood Count 10.3 X10*3/uL (4.8-10.8)
[2021-04-27 07:18] LABS: Glucose, Whole Blood 213 mg/dL (60-115)
[2021-04-27 07:18] LABS: Anion Gap 14 (12-20); Blood Urea Nitrogen 15 mg/dL (9-16); Calcium 8.2 mg/dL (8.4-10.2); Carbon Dioxide 21 mmol/L (22-29); Chloride 115 mmol/L (96-108); Creatinine Clr Calc Pharmacy 67.9; Estimated Glomerular Filt Rate > 60; Glucose Random 227 mg/dL (60-115); Potassium 3.1 mmol/L (3.3-5.1); Sodium 147 mmol/L (135-145)
[2021-04-27] MEDS: Albuterol/Iprat 2.5/0.5MG 3 ML AMPUL.NEB INHALE ×2 (07:27→11:51)
[2021-04-27] MEDS: 0.9 % Sodium Chloride Flush 3 ML SYRINGE IVFLUSH (07:55)
[2021-04-27] MEDS: hydrALAZINE HCl 20 MG/ML VIAL 10 MG IVPUSH (07:55)
[2021-04-27] MEDS: levoFLOXacin/D5W 250 MG/50 ML PIGGYBACK 50 MG IV (07:55)
--- NOTE | 2021-04-27 10:02 | MHC.CLN ---
F/U DAY 6 OF NPO PT REMAINS INAPPROPRIATE FOR TRIALS WITH RN TELEMETRY MD TO DISCUSS GOALS OF CARE WITH FAMILY IF PPN NEEDED; RECOMMEND DAY 1 PPN D10 AA4.25 AT 40ML/HR TO PROVIDE 490KCALS, 41G PROTEIN FOLLOWING
[2021-04-27 11:24] LABS: Glucose, Whole Blood 191 mg/dL (60-115)
[2021-04-27] MEDS: Potassium Chloride/H20 10 MEQ/100 ML PIGGYBACK 100 MEQ IV (11:24)
[2021-04-27] MEDS: KCl 40 mEq in 5% Dex/0.45% Sod 40 MEQ/1,000 ML IV.SOLN 80 MEQ IVCONT (11:24)
[2021-04-27] MEDS: Heparin Sodium,Porcine 5,000 UNIT/ML VIAL 5000 UNIT SUBCUT (11:24)
--- NOTE | 2021-04-27 12:27 | P.DS_ITS ---
DS: Providers Provider Date of Service: 04/27/21 Date of admission: 04/18/21 22:25 Primary care physician: Guzman Jensen MD Consults: 04/18/21 22:25 Consult to Cardiology Routine Consulting Provider: Jacinto Henning Reason for consultation: CHF Has provider been notified: No 04/20/21 17:37 Consult to Pulmonology Routine Consulting Provider: [facility] Pulmonology Services Reason for consultation: Tachypnea. 04/22/21 13:57 Consult to Nephrology Routine Consulting Provider: Sachin Sainz Reason for consultation: uncontrolled HTN, and hypernatremia Has provider been notified: No 04/26/21 18:10 Consult to Infectious Diseases Stat Consulting Provider: Keyona Manzo Reason for consultation: pseudomonas infection Has provider been notified: No DS: Diagnosis Discharge Diagnosis (1) Encephalopathy: Status: Acute (2) Acute UTI: Status: Acute (3) CHF (congestive heart failure): Status: Acute (4) Hypernatremia: Status: Acute DS: Medications Discharge Medications Home Medications: Previous Rx's Medication Instructions Recorded lorazepam 2 mg/mL oral concentrate 0.5 mg PO Q6H PRN #30 ml 04/27/21 (Lorazepam Intensol) morphine concentrate 100 mg/5 mL 5 mg PO Q3H PRN #30 ml 04/27/21 (20 mg/mL) oral solution DS: Summary Hospital Course Hospital Course: History of presenting illness Chief Complaint: Altered mental status This is an 80-year-old female with past medical history of Alzheimer's dementia, recent ischemic colitis status post hemicolectomy about 4 weeks ago,? anxiety, CVA, diabetes, diabetic retinopathy, HTN, hemiplegic, OCD, among others who is brought in from [facility] for altered mental status.? History is obtained from her daughter at bedside as patient is although awake not able to give much history.? According to the daughter patient was being treated for a UTI for the past 5 days at the [facility] but today the staff noticed patient to be more lethargic close to unresponsive confused, tachypneic, breathing abnormally, legs quivering, which were all new for the patient as she is usually alert oriented x3 at baseline.? Her daughter reports that this similar episode occurred arm previously when she had at acute infection in the urine. I am unable to complete review of system is patient is confused and unable to answer questions appropriately On arrival to the ED patient was found to have vital significant for temp of 99.3?, heart rate of 51, respiratory rate of 16, blood pressure 1 0.32 40, satting 94% on room air.? Patient oxygen did dip to the 80s while in the ED on room air, therefore currently on 2 L of oxygen satting 98%. Labs are significant for WBC count of 10.2, hemoglobin of 8.8 with no previous for comparison, pH of 7.6, CO2 of 21, lactic acid of 4.3 that normalized after IV fluids, troponin of 17.6, BNP of 299, UA positive for leukocyte esterase, nitrites, and WBC.? COVID-19 negative No evidence of ileus or obstruction, no definite evidence of obstructive uropa thy with uterus not being dilated, the CT abdomen was also evaluated by the surgeon which felt to be negative for any complications secondary to recent hemicolectomy Given tachypnea, elevated D-dimer, and hypoxia patient underwent CT angiogram motion defect but there it was felt that there was no central emboli in the main right or left pulmonary arteries.? Due to the limitation a venous duplex of the lower extremity was done which was negative for DVT. Head CT negative for any acute intracranial pathology Hospital course 80yo F with recent hemicolectomy due to ischemic colitis, prior CVA, HTN, DM2, admitted from SNF with lethargy and diagnosed to have toxic/metabolic encephalopathy, felt to be multifactorial Likely due to UTI, hypernatremia, lactic acidosis, brain CT showed encephalom aclacia, no other acute abnormality , since admission patient remains lethargic, tachypneic, no improvement despite treatment with IV antibiotic for pseudomonas UTI, hypernatremia persist due to poor by mouth intake, CTA chest showed no infiltrate, effusion or pulmonary embolus, echocardiogram showed normal left ventricular systolic function, mild aortic stenosis, no evidence of congestive heart failure, since patient making no progress, remains lethargic, tachypneic therefore case discussed with daughter Tomeka Lenz HCP regarding goal of care, she does not want any aggressive measures, and wants care towards comfort therefore patient is being transferred back to rehab on comfort care only she has been placed on Ativan and morphine, all home medications has been discontinued Time Spent with Patient Time attestation: Total time spent providing and/or coordinating discharge services: Discharge coordination time: Greater than 30 minutes Quality: Stroke Does the patient have a stroke diagnosis?: No Physical Exam Vital Signs: Vital Signs: Last Vital Signs Temp 97.6 F 04/27/21 11:31 Pulse 64 04/27/21 11:53 Resp 24 H 04/27/21 11:31 BP 142/56 H 04/27/21 11:34 Pulse Ox 99 04/27/21 11:31 Body Mass Index 31.4 General lethargic , tachypneic Neck no JVD Lungs clear to auscultation Heart regular rate rhythm Abdomen obese soft nontender Extremities no edema Neuro moving all 4 extremities DS: Data Data Completed and Pending Labs on day of discharge: Laboratory Results - last 24 hr 04/26/21 04/26/21 04/27/21 16:05 20:58 05:34 WBC 10.3 RBC 3.39 L Hgb 10.4 L Hct 32.8 L MCV 96.8 MCH 30.7 MCHC 31.7 RDW 15.6 Plt Count 269 MPV 9.5 Immature Gran % (Auto) 0.9 H Neut % (Auto) 80.1 H Lymph % (Auto) 13.4 L [place] % (Auto) 5.5 Eos % (Auto) 0.0 Baso % (Auto) 0.1 Lymph # (Auto) 1.4 [place] # (Auto) 0.6 Eos # (Auto) 0.0 Baso # (Auto) 0.0 Abs Immat Gran (auto) 0.09 H Absolute Neuts (auto) 8.3 Absolute Nucleated RBC 0.000 Nucleated RBC % (auto) 0.0 Sodium Potassium Chloride Carbon Dioxide Anion Gap BUN Creatinine Estim Creat Clear Calc Estimated GFR POC Glucose 195 H 218 H Random Glucose Calcium 04/27/21 04/27/21 04/27/21 05:34 07:12 11:13 WBC RBC Hgb Hct MCV MCH MCHC RDW Plt Count MPV Immature Gran % (Auto) Neut % (Auto) Lymph % (Auto) [place] % (Auto) Eos % (Auto) Baso % (Auto) Lymph # (Auto) [place] # (Auto) Eos # (Auto) Baso # (Auto) Abs Immat Gran (auto) Absolute Neuts (auto) Absolute Nucleated RBC Nucleated RBC % (auto) Sodium 147 H Potassium 3.1 L Chloride 115 H Carbon Dioxide 21 L Anion Gap 14 BUN 15 Creatinine 0.69 Estim Creat Clear Calc 67.9 Estimated GFR > 60 POC Glucose 213 H 191 H Random Glucose 227 H Calcium 8.2 L Discharge Plan Discharge Patient Disposition: er [facility] Discharge Diagnosis: Acute toxic metabolic encephalopathy Pseudomonas UTI Hypernatremia Hypokalemia Tachypnea Lactic acidosis Diabetes mellitus Referrals: [facility] [Other] - 1 Week Physician,Unknown [Physician] - 1 Week Discharge Medications: New lorazepam [Lorazepam Intensol] 2 mg/mL concentrate 0.5 mg PO Q6H PRN (Reason: anxiety) Qty: 30 RF: 0 morphine concentrate 100 mg/5 mL (20 mg/mL) solution 5 mg PO Q3H PRN (Reason: pain/sob) Qty: 30 RF: 0 Discontinued clopidogrel 75 mg Tablet 75 mg PO DAILY RF: 0 docusate sodium 100 mg Capsule 100 mg PO DAILY RF: 0 calcium carbonate [Tums 500] 500 mg calcium (1,250 mg) Tablet,Chewable 500 mg PO BID RF: 0 fluticasone propionate [Flonase] 50 mcg/actuation [place],Suspension 1 spray INTRANASAL DAILY RF: 0 sertraline 100 mg Tablet 100 mg PO BEDTIME RF: 0 acetaminophen 500 mg Tablet 500 mg PO Q6H PRN (Reason: PAIN/FEVER) RF: 0 magnesium hydroxide [Milk of Magnesia] 400 mg/5 mL Suspension 30 ml PO DAILY PRN (Reason: Gastric Reflux) RF: 0 bisacodyl 10 mg Suppository 10 mg VT DAILY PRN (Reason: Constipation) RF: 0 losartan 25 mg Tablet 50 mg PO DAILY RF: 0 oxybutynin chloride 5 mg Tablet 5 mg PO BID RF: 0 Lantus Solostar U-100 Insulin 100 unit/mL (3 mL) Insulin Pen 10 unit SUBCUT QPM RF: 0 furosemide 40 mg Tablet 40 mg PO DAILY RF: 0 ipratropium-albuterol [DuoNeb] 0.5 mg-3 mg(2.5 mg base)/3 mL Solution For Nebulization 3 ml INHALATION QID RF: 0 albuterol sulfate 1.25 mg/3 mL Solution For Nebulization 1.25 mg INHALATION Q4H PRN (Reason: Shortness Of Breath Or Wheezing) RF: 0 thiamine HCl (vitamin B1) [Vitamin B-1] 100 mg Tablet 100 mg PO DAILY RF: 0 hydralazine 25 mg Tablet 25 mg PO BID RF: 0 guaifenesin [Robitussin] 100 mg/5 mL Liquid 200 mg PO Q4H PRN (Reason: Cough) RF: 0 cephalexin 500 mg capsule 1 cap PO QID RF: 0 alum-mag hydroxide-simeth [Mylanta] 200-200-20 mg/5 mL Suspension 15 ml PO QID PRN (Reason: Gastric Reflux) RF: 0 insulin lispro [Humalog U-100 Insulin] 100 unit/mL Solution 1 - 5 sliding scale dose SUBCUT USEASDIRECTD RF: 0 modafinil 100 mg Tablet 100 mg PO DAILY RF: 0 metoprolol tartrate 25 mg Tablet 25 mg PO Q8H RF: 0 cholecalciferol (vitamin D3) 25 mcg (1,000 unit) Tablet 25 mcg PO DAILY RF: 0 Thera M Plus (ferrous fumarat) 9 mg iron-400 mcg Tablet 1 tab PO DAILY RF: 0 lidocaine HCl [Aspercreme (lidocaine HCl)] 4 % Cream 1 appl TOPICAL BEDTIME RF: 0 Discharge Orders: Discharge Order (Routine); Ordered 04/27/21 Ordered By: Pedro Farah Diet: other Activity on Discharge: As tolerated Stand Alone Forms: Patient Portal Discharge page Care Plan Goals: Toxic metabolic encephalopathy with no improvement, patient transition to comfort care use Ativan for anxiety and morphine for respiratory distress and pain Health Concerns: Toxic metabolic encephalopathy, hypertension, lactic acidosis, hypernatremia, patient remains lethargic unable to take by mouth medications or food Plan of Treatment: Follow-up with primary care physician in next 2-3 days Assessment: As above
[2021-04-27 13:03] LABS: COVID-19 Test Negative (Negative)
--- NOTE | 2021-04-27 14:45 | MHC.CM.PN ---
Patient has been medically cleared for dc to SNF/LTC at [facility] today at 4PM, via [facility].Patient/Daughter are aware of and in agreement with the dc plan. Second IMM addressed today, providing them with the original and placing a copy on the chart.
== END 2021-04-27 16:50 | disposition skilled nursing facility (03) | DRG 689 ==
LOC: HO.ED 20:41 → HO.EDOVER 22:34 → HO.IMC 04-19 05:26
PROVIDERS: Family Medicine; Internal Medicine; Internal Medicine Nephrology; Admitting Provider Internal Medicine; Emergency Provider Emergency Medicine; PCP Internal Medicine Rheumatology; Visit Provider Hospitalist
DX: N39.0 Urinary tract infection, site not specified (principal); G92 Toxic encephalopathy; E87.2 Acidosis; J98.11 Atelectasis; E87.0 Hyperosmolality and hypernatremia; I50.32 Chronic diastolic (congestive) heart failure; K21.9 Gastro-esophageal reflux disease without esophagitis; G30.9 Alzheimer's disease, unspecified; F02.80 Dementia in other diseases classified elsewhere, unspecified severity, without behavioral disturbance, psychotic disturbance, mood disturbance, and anxiety; I11.0 Hypertensive heart disease with heart failure; F43.10 Post-traumatic stress disorder, unspecified; R06.82 Tachypnea, not elsewhere classified; B96.5 Pseudomonas (aeruginosa) (mallei) (pseudomallei) as the cause of diseases classified elsewhere; I35.0 Nonrheumatic aortic (valve) stenosis; I34.0 Nonrheumatic mitral (valve) insufficiency; G93.89 Other specified disorders of brain; Z20.822 Contact with and (suspected) exposure to COVID-19; Z88.0 Allergy status to penicillin; Z88.6 Allergy status to analgesic agent; Z79.899 Other long term (current) drug therapy; E11.9 Type 2 diabetes mellitus without complications; Z66 Do not resuscitate
CPT/HCPCS: 0241U; 36415; 36600; 70450; 71045; 71260; 71275; 74176; 80048; 80051; 80076; 80307; 81001; 82140; 82803; 82947; 83036; 83605; 83735; 83880; 84295; 84484; 85025; 85027; 85379; 87040; 87086; 87088; 87186; 87635; 92610; 93005; 93306; 93970; 94640; 94664; 96361; 96365; 96375; 96376; 99285; C1758; J0696; J1450; J1940; J1956; J2060; J2270; J2405; Q9967